=== PATIENT | female | born 1970 | race Caucasian/White ===

== ENCOUNTER 2020-11-06 14:39 | Inpatient (IN) | payer MEDICARE, OTHER ==
[~2020-11-06] VITALS: Ht 152.4 cm; Wt 99.3 kg
[2020-11-06 14:30] VITALS: BP 136/75
--- NOTE | 2020-11-06 15:57 | PDOC1 ---
History and Physical Date of Service: DOS: DATE: 11/06/20 TIME: 15:57 Chief Complaint: Chief Complain: N/V History of Present Illness: HPI: 50 yo F With PMHx of fibromyalgias, seizures, asthma, who went to [place] ED with 5 days of chills, myalgia, dizziness and had worsening symptoms. She also had nausea and vomiting and abdominal pain and some incontinence of stool and urine in the last 3 days. Patient states that she has had 3 episodes of diarrhea today and multiple episodes of nausea vomiting today. She was tested for Covid at [place] and was found to be positive. She did receive 1 dose of Remdesivir and then she was transferred over to [facility] because there is no beds at [place]. There are no alleviating or aggravating factors. She did recently finished antibiotics 2 weeks ago for an ear infection, she did take Augmentin. Denies fevers, chest pain, shortness of breath, bloody stools or hematuria. Patient did not get vaccinated for Covid because her PCP told her that she was having multiple infections and told her to wait until these improved. 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 EYES: No blurred, double or loss of vision. NOSE AND THROAT: No history of nosebleeds, hoarseness or sore throat. HEART: No history of palpitations, chest pain or shortness of breath on exertion. LUNGS: Denies cough, hemoptysis, wheezing or shortness of breath. GASTROINTESTINAL: Denies changes in appetite, nausea, vomiting, diarrhea or constipation. GENITOURINARY: No history of frequency, urgency, hesitancy or nocturia. NEUROLOGIC: Denies history of numbness, tingling, or tremor. PSYCHIATRIC: No history of panic, anxiety or depression. ENDOCRINE: No history of heat or cold intolerance, polyuria or polydipsia. EXTREMITIES: Denies joint pain, pain on walking or stiffness. Physical Exam: Vital Signs: Vital Signs Date Time Temp Pulse Resp B/P (MAP) Pulse Ox O2 Delivery O2 Flow Rate FiO2 11/06/20 14:30 98.7 80 18 136/75 (95) 95 Room Air 98.7 Physcial Exam: General: Well developed, well nourished, no acute distress, well appearing HEENT: Pupils equally round and reactive to light, EOMI, no discharge, normal conjunctiva Neck: Supple, no nuchal rigidity, no JVD, trachea midline, no tenderness Cardiac: RRR, no murmurs, no gallops, no rubs Chest/Lungs: CTAB, no wheeze, no rhonchi, no crackles Abdomen: soft, non-distended, no guarding, no peritoneal signs, non-tender Back: No tenderness Extremities: no edema, pulses intact, non-tender,capillary refill <3 sec bilateral upper and lower extremities, Neuro: Alert and oriented x 4, no focal deficits, normal speech Labs: Labs: Labs reviewed from [place], significant for sodium of 135, creatinine 1.2, calcium 7.9, magnesium 1.8, lactic acid 1.7, troponins less than 0.04 Images: Images Chest x-ray reviewed from [place] results showed diffuse chronic interstitial pulmonary changes. Assessment/Plan Assessment/Plan COVID-19 infection Intractable nausea vomiting diarrhea, possibly related to viral infection Mild hyponatremia History of fibromyalgia History of seizures History of rheumatoid arthritis Admit to medicine for further management Continue IV thiamine and vitamin C IV Solu-Medrol every 8 hours IV Remdesivir if patient requires O2 supplementation beyond their baseline Pending D-dimer labs Continue IV fluids Lovenox for DVT prophylaxis Protonix while on steroids GI prophylaxis Clear liquid diet Full code Discussed with RN and SW Disposition inpatient management as above Surrogate decision maker is the Justifications for Admission Other Justification IRVING CAMACHO MD Nov 06, 2020 15:57
[2020-11-06] MEDS ORDERED: POTASSIUM CHLORIDE 20 MEQ TABLET.ER. PO ONE (16:15)
[2020-11-06] MEDS ORDERED: DOCUSATE SODIUM 100 MG CAPSULE. PO PRN (16:30)
[2020-11-06] MEDS ORDERED: DEXTROSE 50% 25 GM / 50ML DISP.SYRIN. IV PRN (16:30)
[2020-11-06] MEDS ORDERED: PROCHLORPERAZINE 10 MG/2 ML VIAL. IV PRN (16:30)
[2020-11-06] MEDS ORDERED: ONDANSETRON PF 4 MG/2 ML VIAL. IVP PRN (16:30)
[2020-11-06] MEDS ORDERED: MAGNESIUM SULFATE 1GM 100 ML IV ONE (16:30)
[2020-11-06] MEDS ORDERED: SENNOSIDES 8.6 MG TABLET PO PRN (16:30)
[2020-11-06] MEDS ORDERED: ENOXAPARIN 40 MG/0.4 ML SYRINGE. SQ SCH (17:00)
[2020-11-06] MEDS: IV NORMAL SALINE 1000ML BAG 1,000 ML IV SCH (17:01)
[2020-11-06] MEDS: methylPREDNISolone SOD SUCC PF 40 MG/ML VIAL. IV SCH ×2 (17:02→21:12)
[2020-11-06] MEDS: THIAMINE 100 MG TABLET. PO SCH (17:02)
[2020-11-06] MEDS: PANTOPRAZOLE 40 MG TABLET.DR. PO SCH (17:02)
[2020-11-06] MEDS ORDERED: DICY10CA3 PO (18:30)
[2020-11-06] MEDS ORDERED: CYCL10TA2 PO (18:30)
[2020-11-06] MEDS ORDERED: DOXE25CA PO (18:30)
[2020-11-06] MEDS ORDERED: VENTOLIN HFA18 GM INH (18:30)
[2020-11-06] MEDS ORDERED: METO10TA81 PO (18:30)
[2020-11-06] MEDS ORDERED: MAGN400C PO (18:30)
[2020-11-06] MEDS ORDERED: RIZA10TA PO (18:30)
[2020-11-06] MEDS ORDERED: BUDE10.2 IH (18:30)
[2020-11-06] MEDS ORDERED: FOLI0.8C PO (18:30)
[2020-11-06] MEDS ORDERED: METO-239 PO (18:30)
[2020-11-06] MEDS ORDERED: MONT10TA49 PO (18:30)
[2020-11-06] MEDS ORDERED: ALPR0.254 PO (18:30)
[2020-11-06] MEDS ORDERED: POTA20TA4 PO (18:30)
[2020-11-06] MEDS ORDERED: ALBU2.5V8 INH (18:30)
[2020-11-06] MEDS ORDERED: METH2.5T PO (18:30)
[2020-11-06] MEDS ORDERED: CHLO25TA2 PO (18:30)
[2020-11-06] MEDS ORDERED: CITA20TA9 PO (18:30)
[2020-11-06] MEDS ORDERED: PRED5TAB PO (18:30)
[2020-11-06] MEDS ORDERED: AMIT25TA PO (18:30)
[2020-11-06] MEDS ORDERED: ATOR20TA58 PO (18:30)
[2020-11-06 19:00] VITALS: BP 147/86
[2020-11-06] MEDS: IPRATROPIUM/ALBUTEROL 20/100mcg/INH INHALER. INH SCH (20:34)
[2020-11-06] MEDS: ATORVASTATIN CALCIUM 20 MG TABLET PO SCH (21:00)
[2020-11-06] MEDS: CYCLOBENZAPRINE 10 MG TABLET. PO SCH (21:00)
[2020-11-06] MEDS: ASCORBIC ACID 1,000 MG TABLET PO SCH (21:00)
[2020-11-06] MEDS: ACETAMINOPHEN 325 MG TABLET. PO PRN ×2 (21:12→21:32)
[2020-11-06] MEDS: DOXEPIN HCL 25 MG CAPSULE. PO PRN (21:33)
[2020-11-06] MEDS: BENZONATATE 100 MG CAPSULE. PO SCH (21:55)
[2020-11-06] MEDS: ZOLPIDEM 5 MG TABLET. PO PRN (21:56)
[2020-11-06] MEDS: IBUPROFEN 200 MG TABLET. PO PRN (21:56)
[2020-11-06 23:00] VITALS: BP 122/70
[2020-11-07 03:00] VITALS: BP 130/76
[2020-11-07 05:00] LABS: BASO % 0 % (0-3); EOS % 0 % (0-3); HEMATOCRIT 36.8 % (36.0-47.0); HEMOGLOBIN 12.3 g/dL (12.0-15.5); LYMPH # 0.9 x10^3/uL (1.0-4.8); LYMPH % 15 % (24-48); MEAN CORPUSCULAR HEMOGLOBIN 26 pg (25-35); MEAN CORPUSCULAR HGB CONC 33 g/dL (31-37); MEAN CORPUSCULAR VOLUME 78 fL (79-100); MONO # 0.2 x10^3/uL (0.0-1.1); MONO % 3 % (0-9); NEUT # 4.8 x10^3/uL (1.8-7.7); NEUT % 83 % (31-73); PLATELET COUNT 280 x10^3/uL (140-400); RED BLOOD COUNT 4.74 x10^6/uL (3.50-5.40); RED CELL DISTRIBUTION WIDTH 16.3 % (11.5-14.5); WHITE BLOOD COUNT 5.9 x10^3/uL (4.0-11.0)
[2020-11-07 05:20] LABS: CALCIUM 7.9 mg/dL (8.5-10.1); GFR 58.2; MAGNESIUM 2.3 mg/dL (1.8-2.4); POTASSIUM 4.6 mmol/L (3.5-5.1)
[2020-11-07] MEDS: methylPREDNISolone SOD SUCC PF 40 MG/ML VIAL. IV SCH ×3 (06:04→21:51)
[2020-11-07] MEDS: IV NORMAL SALINE 1000ML BAG 1,000 ML IV SCH ×2 (06:04→20:28)
[2020-11-07 07:00] VITALS: BP 123/81
[2020-11-07] MEDS: THIAMINE 100 MG TABLET. PO SCH (09:45)
[2020-11-07] MEDS: ASCORBIC ACID 1,000 MG TABLET PO SCH ×3 (09:45→20:28)
[2020-11-07] MEDS: AMITRIPTYLINE HCL 25 MG TABLET. PO SCH (09:45)
[2020-11-07] MEDS: FOLIC ACID 1 MG TABLET. PO SCH (09:45)
[2020-11-07] MEDS: MAGNESIUM OXIDE 400 MG TABLET PO SCH (09:45)
[2020-11-07] MEDS: CYCLOBENZAPRINE 10 MG TABLET. PO SCH ×3 (09:45→20:28)
[2020-11-07] MEDS: CHLORTHALIDONE 25 MG TABLET. PO SCH (09:45)
[2020-11-07] MEDS: ALBUTEROL SULFATE 8GM INHALER. INH PRN (09:45)
[2020-11-07] MEDS: IPRATROPIUM/ALBUTEROL 20/100mcg/INH INHALER. INH SCH ×4 (09:45→20:27)
[2020-11-07] MEDS: DICYCLOMINE HCL 10 MG CAPSULE PO SCH (09:45)
[2020-11-07] MEDS: BENZONATATE 100 MG CAPSULE. PO SCH ×3 (09:46→20:29)
[2020-11-07] MEDS: METOCLOPRAMIDE 10 MG TABLET. PO SCH ×2 (09:46→16:49)
[2020-11-07] MEDS: CITALOPRAM 20 MG TABLET. PO SCH (09:46)
[2020-11-07] MEDS: PANTOPRAZOLE 40 MG TABLET.DR. PO SCH (09:46)
[2020-11-07] MEDS: METOPROLOL SUCC 24HR ER 50 MG TAB.ER.24H. PO SCH (09:47)
[2020-11-07] MEDS ORDERED: BENZONATATE 100 MG CAPSULE. PO SCH (10:30)
[2020-11-07 11:00] VITALS: BP 123/49
[2020-11-07] MEDS: REMDESIVIR 100mg in NORMAL SALINE 250ML X 4 DAYS IV SCH (11:43)
[2020-11-07] MEDS: guaiFENesin/CODEINE 100mg/10mg 5 ML LIQUID PO PRN (11:43)
[2020-11-07 15:00] VITALS: BP 138/73
[2020-11-07 19:54] VITALS: BP 129/75
[2020-11-07] MEDS: ENOXAPARIN 40 MG/0.4 ML SYRINGE. SQ SCH (20:28)
[2020-11-07] MEDS: ATORVASTATIN CALCIUM 20 MG TABLET PO SCH (20:29)
--- NOTE | 2020-11-07 21:00 | NUR ---
Upon doing 2030 assessment Patient stated she fell. Then stated "I didn't fall I squatted and hit my foot on the trash, grabbing the IV pole and trash can." Patient stated she hurt her foot, but rubbed it with lotion and it doesn't hurt anymore. No injury noted to foot. Patient stated her hips are sore due to doing a football squat when stopping herself from falling. No injury noted to hips. Call to Dr. Reid and informed him of Patent near fall. Dr. Reid stated he would assess her in am with rounds.
[2020-11-07] MEDS: IBUPROFEN 200 MG TABLET. PO PRN (21:51)
[2020-11-07 23:57] VITALS: BP 100/47
[2020-11-08 03:58] VITALS: BP 90/49
[2020-11-08] MEDS: methylPREDNISolone SOD SUCC PF 40 MG/ML VIAL. IV SCH ×3 (06:08→21:01)
[2020-11-08 07:00] VITALS: BP 127/59
[2020-11-08 07:14] LABS: BASO % 0 % (0-3); EOS % 0 % (0-3); HEMOGLOBIN 11.4 g/dL (12.0-15.5); LYMPH % 9 % (24-48); MEAN CORPUSCULAR HEMOGLOBIN 25 pg (25-35); MEAN CORPUSCULAR HGB CONC 33 g/dL (31-37); MEAN CORPUSCULAR VOLUME 77 fL (79-100); MONO # 0.5 x10^3/uL (0.0-1.1); MONO % 5 % (0-9); NEUT # 8.9 x10^3/uL (1.8-7.7); NEUT % 86 % (31-73); PLATELET COUNT 286 x10^3/uL (140-400); RED BLOOD COUNT 4.52 x10^6/uL (3.50-5.40); RED CELL DISTRIBUTION WIDTH 16.8 % (11.5-14.5); WHITE BLOOD COUNT 10.4 x10^3/uL (4.0-11.0)
[2020-11-08 07:25] LABS: CALCIUM 7.5 mg/dL (8.5-10.1); CREATININE 1.1 mg/dL (0.6-1.0); GFR 52.2; MAGNESIUM 2.2 mg/dL (1.8-2.4); POTASSIUM 4.1 mmol/L (3.5-5.1)
[2020-11-08] MEDS: CYCLOBENZAPRINE 10 MG TABLET. PO SCH ×3 (08:29→21:00)
[2020-11-08] MEDS: THIAMINE 100 MG TABLET. PO SCH (08:29)
[2020-11-08] MEDS: DICYCLOMINE HCL 10 MG CAPSULE PO SCH (08:29)
[2020-11-08] MEDS: MAGNESIUM OXIDE 400 MG TABLET PO SCH (08:30)
[2020-11-08] MEDS: AMITRIPTYLINE HCL 25 MG TABLET. PO SCH (08:30)
[2020-11-08] MEDS: PANTOPRAZOLE 40 MG TABLET.DR. PO SCH (08:30)
[2020-11-08] MEDS: CITALOPRAM 20 MG TABLET. PO SCH (08:30)
[2020-11-08] MEDS: CHLORTHALIDONE 25 MG TABLET. PO SCH (08:30)
[2020-11-08] MEDS: FOLIC ACID 1 MG TABLET. PO SCH (08:30)
[2020-11-08] MEDS: BENZONATATE 100 MG CAPSULE. PO SCH ×3 (08:30→21:00)
[2020-11-08] MEDS: IPRATROPIUM/ALBUTEROL 20/100mcg/INH INHALER. INH SCH ×4 (08:31→21:01)
[2020-11-08] MEDS: IV NORMAL SALINE 1000ML BAG 1,000 ML IV SCH ×2 (08:32→21:00)
[2020-11-08] MEDS: ENOXAPARIN 40 MG/0.4 ML SYRINGE. SQ SCH ×2 (08:34→21:00)
[2020-11-08] MEDS: METOPROLOL SUCC 24HR ER 50 MG TAB.ER.24H. PO SCH (08:36)
[2020-11-08] MEDS: METOCLOPRAMIDE 10 MG TABLET. PO SCH ×2 (08:36→16:10)
--- NOTE | 2020-11-08 08:58 | PDOC ---
[employer] PROGRESS NOTE Date of Service DOS: DATE: 11/07/20 TIME: 08:57 Late entry for November 07 Chief Complaint Chief Complaint Shortness of breath History of Present Illness History of Present Illness 50 yo F With PMHx of fibromyalgias, seizures, asthma, who went to [place] ED with 5 days of chills, myalgia, dizziness and had worsening symptoms. She also had nausea and vomiting and abdominal pain and some incontinence of stool and urine in the last 3 days. Patient states that she has had 3 episodes of diarrhea today and multiple episodes of nausea vomiting today. She was tested for Covid at [place] and was found to be positive. She did receive 1 dose of Remdesivir and then she was transferred over to [facility] because there is no beds at [place]. There are no alleviating or aggravating factors. She did recently finished antibiotics 2 weeks ago for an ear infection, she did take Augmentin. Denies fevers, chest pain, shortness of breath, bloody stools or hematuria. Patient did not get vaccinated for Covid because her PCP told her that she was having multiple infections and told her to wait until these improved. 11/07 Patient evaluated at bedside. She was resting in bed on room air with a lot of coughing. She was very pleasant. Understands this will take some time to resolve. Will restart remdesivir today as it was started at the outside hospital. Vitals/I&O Vitals/I&O: Vital Signs Date Time Temp Pulse Resp B/P (MAP) Pulse Ox O2 Delivery O2 Flow Rate FiO2 11/08/20 08:36 77 127/59 11/08/20 07:00 99.1 19 93 Room Air 99.1 I & O 11/07/20 11/07/20 11/08/20 15:00 23:00 07:00 Intake Total 290 ml 100 ml 460 ml Output Total 650 ml Balance 290 ml 100 ml -190 ml Physical Exam General: Alert, Oriented X3, Cooperative Heart: Regular rate, Normal S1, Normal S2 Lungs: Crackles Abdomen: Normal bowel sounds, Soft, No tenderness Extremities: No edema, Normal pulses Labs Labs: Laboratory Tests Test 11/08/20 06:25 White Blood Count 10.4 x10^3/uL (4.0-11.0) Red Blood Count 4.52 x10^6/uL (3.50-5.40) Hemoglobin 11.4 g/dL (12.0-15.5) Hematocrit 35.0 % (36.0-47.0) Mean Corpuscular Volume 77 fL (79-100) Mean Corpuscular Hemoglobin 25 pg (25-35) Mean Corpuscular Hemoglobin Concent 33 g/dL (31-37) Red Cell Distribution Width 16.8 % (11.5-14.5) Platelet Count 286 x10^3/uL (140-400) Neutrophils (%) (Auto) 86 % (31-73) Lymphocytes (%) (Auto) 9 % (24-48) Monocytes (%) (Auto) 5 % (0-9) Eosinophils (%) (Auto) 0 % (0-3) Basophils (%) (Auto) 0 % (0-3) Neutrophils # (Auto) 8.9 x10^3/uL (1.8-7.7) Lymphocytes # (Auto) 1.0 x10^3/uL (1.0-4.8) Monocytes # (Auto) 0.5 x10^3/uL (0.0-1.1) Eosinophils # (Auto) 0.0 x10^3/uL (0.0-0.7) Basophils # (Auto) 0.0 x10^3/uL (0.0-0.2) Sodium Level 137 mmol/L (136-145) Potassium Level 4.1 mmol/L (3.5-5.1) Chloride Level 100 mmol/L (98-107) Carbon Dioxide Level 29 mmol/L (21-32) Anion Gap 8 (6-14) Blood Urea Nitrogen 8 mg/dL (7-20) Creatinine 1.1 mg/dL (0.6-1.0) Estimated GFR (Cockcroft-Gault) 52.2 Glucose Level 214 mg/dL (70-99) Calcium Level 7.5 mg/dL (8.5-10.1) Magnesium Level 2.2 mg/dL (1.8-2.4) Review of Systems Review of Systems: Negative unless noted in HPI Assessment and Plan Assessmemt and Plan COVID-19 infection Intractable nausea vomiting diarrhea, possibly related to viral infection Mild hyponatremia History of fibromyalgia History of seizures History of rheumatoid arthritis Admit to medicine for further management Continue IV thiamine and vitamin C IV Solu-Medrol every 8 hours IV Remdesivir if patient requires O2 supplementation beyond their baseline Pending D-dimer labs Continue IV fluids Lovenox for DVT prophylaxis Protonix while on steroids GI prophylaxis Clear liquid diet Full code Discussed with RN and SW Disposition inpatient management as above Surrogate decision maker is the Comment Review of Relevant I have reviewed the following items shawanda (where applicable) has been applied. Medications: Current Medications Medications (Trade) Dose Ordered Sig/Alex Route PRN Reason Start Time Stop Time Status Last Admin Dose Admin Amitriptyline HCl (Elavil) 25 mg DAILY PO 11/07/20 09:00 11/08/20 08:30 Chlorthalidone (Thalitone) 25 mg DAILY PO 11/07/20 09:00 11/08/20 08:30 Citalopram Hydrobromide (CeleXA) 20 mg DAILY PO 11/07/20 09:00 11/08/20 08:30 Dicyclomine HCl (Bentyl) 10 mg DAILY PO 11/07/20 09:00 11/08/20 08:29 Metoprolol Succinate (Toprol Xl) 50 mg DAILY PO 11/07/20 09:00 11/08/20 08:36 Folic Acid (Folic Acid) 1 mg DAILY PO 11/07/20 09:00 11/08/20 08:30 Magnesium Oxide (Magnesium Oxide) 400 mg DAILY PO 11/07/20 09:00 11/08/20 08:30 Remdesivir 100 mg/ Sodium Chloride 230 ml @ 460 mls/hr Q24H IV 11/07/20 11:30 11/10/20 11:59 11/07/20 11:43 Enoxaparin Sodium (Lovenox 40mg Syringe) 40 mg BID SQ 11/07/20 21:00 11/08/20 08:34 Justifications for Admission Other Justification COVID-19 infection VICTORIA JONES MD Nov 08, 2020 08:58
[2020-11-08 10:48] LABS: % BANDS 7 % (0-9); % LYMPHS 7 % (24-48); % MONOS 5 % (0-10); % SEGS 81 % (35-66); PLT ESTIMATE ADEQUATE (ADEQUATE)
[2020-11-08 11:00] VITALS: BP 109/55
--- NOTE | 2020-11-08 11:55 | PDOC ---
[employer] PROGRESS NOTE Date of Service DOS: DATE: 11/08/20 TIME: 11:54 Chief Complaint Chief Complaint Shortness of breath History of Present Illness History of Present Illness 50 yo F With PMHx of fibromyalgias, seizures, asthma, who went to [place] ED with 5 days of chills, myalgia, dizziness and had worsening symptoms. She also had nausea and vomiting and abdominal pain and some incontinence of stool and urine in the last 3 days. Patient states that she has had 3 episodes of diarrhea today and multiple episodes of nausea vomiting today. She was tested for Covid at [place] and was found to be positive. She did receive 1 dose of Remdesivir and then she was transferred over to [facility] because there is no beds at [place]. There are no alleviating or aggravating factors. She did recently finished antibiotics 2 weeks ago for an ear infection, she did take Augmentin. Denies fevers, chest pain, shortness of breath, bloody stools or hematuria. Patient did not get vaccinated for Covid because her PCP told her that she was having multiple infections and told her to wait until these improved. 11/07 Patient evaluated at bedside. She was resting in bed on room air with a lot of coughing. She was very pleasant. Understands this will take some time to resolve. Will restart remdesivir today as it was started at the outside hospital. 11/08 Patient evaluated at bedside. She was up in chair resting when I evaluated her. She says her cough is still lingering but definitely improved. Continuing ongoing Covid treatment. Patient agreeable to ongoing admission. Plan of care discussed with bedside nurse. Vitals/I&O Vitals/I&O: Vital Signs Date Time Temp Pulse Resp B/P (MAP) Pulse Ox O2 Delivery O2 Flow Rate FiO2 11/08/20 11:00 98.1 76 19 109/55 (73) 92 Nasal Cannula 98.1 I & O 11/07/20 11/07/20 11/08/20 15:00 23:00 07:00 Intake Total 290 ml 100 ml 460 ml Output Total 650 ml Balance 290 ml 100 ml -190 ml Physical Exam General: Alert, Oriented X3, Cooperative Heart: Regular rate, Normal S1, Normal S2 Lungs: Crackles Abdomen: Normal bowel sounds, Soft, No tenderness Extremities: No edema, Normal pulses Skin: No significant lesion Labs Labs: Laboratory Tests Test 11/08/20 06:25 White Blood Count 10.4 x10^3/uL (4.0-11.0) Red Blood Count 4.52 x10^6/uL (3.50-5.40) Hemoglobin 11.4 g/dL (12.0-15.5) Hematocrit 35.0 % (36.0-47.0) Mean Corpuscular Volume 77 fL (79-100) Mean Corpuscular Hemoglobin 25 pg (25-35) Mean Corpuscular Hemoglobin Concent 33 g/dL (31-37) Red Cell Distribution Width 16.8 % (11.5-14.5) Platelet Count 286 x10^3/uL (140-400) Neutrophils (%) (Auto) 86 % (31-73) Lymphocytes (%) (Auto) 9 % (24-48) Monocytes (%) (Auto) 5 % (0-9) Eosinophils (%) (Auto) 0 % (0-3) Basophils (%) (Auto) 0 % (0-3) Neutrophils # (Auto) 8.9 x10^3/uL (1.8-7.7) Lymphocytes # (Auto) 1.0 x10^3/uL (1.0-4.8) Monocytes # (Auto) 0.5 x10^3/uL (0.0-1.1) Eosinophils # (Auto) 0.0 x10^3/uL (0.0-0.7) Basophils # (Auto) 0.0 x10^3/uL (0.0-0.2) Segmented Neutrophils % 81 % (35-66) Band Neutrophils % 7 % (0-9) Lymphocytes % 7 % (24-48) Monocytes % 5 % (0-10) Platelet Estimate Adequate (ADEQUATE) Sodium Level 137 mmol/L (136-145) Potassium Level 4.1 mmol/L (3.5-5.1) Chloride Level 100 mmol/L (98-107) Carbon Dioxide Level 29 mmol/L (21-32) Anion Gap 8 (6-14) Blood Urea Nitrogen 8 mg/dL (7-20) Creatinine 1.1 mg/dL (0.6-1.0) Estimated GFR (Cockcroft-Gault) 52.2 Glucose Level 214 mg/dL (70-99) Calcium Level 7.5 mg/dL (8.5-10.1) Magnesium Level 2.2 mg/dL (1.8-2.4) Assessment and Plan Assessmemt and Plan Assessmemt and Plan COVID-19 infection Intractable nausea vomiting diarrhea, possibly related to viral infection Mild hyponatremia History of fibromyalgia History of seizures History of rheumatoid arthritis Admit to medicine for further management Continue IV thiamine and vitamin C IV Solu-Medrol every 8 hours IV Remdesivir if patient requires O2 supplementation beyond their baseline As needed Robitussin with codeine and Tessalon Perles Continue IV fluids Lovenox for DVT prophylaxis Protonix while on steroids GI prophylaxis Clear liquid diet Full code Discussed with RN and SW Disposition inpatient management as above Surrogate decision maker is the Comment Review of Relevant I have reviewed the following items shawanda (where applicable) has been applied. Medications: Current Medications Medications (Trade) Dose Ordered Sig/Alex Route PRN Reason Start Time Stop Time Status Last Admin Dose Admin Enoxaparin Sodium (Lovenox 40mg Syringe) 40 mg BID SQ 11/07/20 21:00 11/08/20 08:34 Justifications for Admission Other Justification COVID-19 infection VICTORIA JONES MD Nov 08, 2020 11:55
[2020-11-08] MEDS: ASCORBIC ACID 1,000 MG TABLET PO SCH ×3 (12:16→21:00)
[2020-11-08] MEDS: REMDESIVIR 100mg in NORMAL SALINE 250ML X 4 DAYS IV SCH (12:20)
[2020-11-08] MEDS: guaiFENesin/CODEINE 100mg/10mg 5 ML LIQUID PO PRN (13:09)
[2020-11-08] MEDS: IBUPROFEN 200 MG TABLET. PO PRN (13:14)
[2020-11-08 15:00] VITALS: BP 119/54
--- NOTE | 2020-11-08 15:00 | NUR ---
Nurse's note: Non administered 1400 dose of ascorbic acid, same med given 2 hours ago.
[2020-11-08] MEDS: MORPHINE SULFATE 2 MG/ML INJ. IVP PRN ×2 (16:09→23:11)
[2020-11-08 19:51] VITALS: BP 107/55
[2020-11-08] MEDS: ATORVASTATIN CALCIUM 20 MG TABLET PO SCH (21:07)
[2020-11-08 23:59] VITALS: BP 135/73
[2020-11-09 03:50] VITALS: BP 128/81
[2020-11-09] MEDS: methylPREDNISolone SOD SUCC PF 40 MG/ML VIAL. IV SCH ×3 (05:43→20:58)
[2020-11-09] MEDS: MORPHINE SULFATE 2 MG/ML INJ. IVP PRN (05:44)
[2020-11-09 06:51] LABS: CALCIUM 7.7 mg/dL (8.5-10.1); CREATININE 1.1 mg/dL (0.6-1.0); GFR 52.2; MAGNESIUM 2.2 mg/dL (1.8-2.4); POTASSIUM 3.4 mmol/L (3.5-5.1)
[2020-11-09 07:00] VITALS: BP 136/76
[2020-11-09 07:11] LABS: BASO % 0 % (0-3); EOS % 0 % (0-3); HEMATOCRIT 36.1 % (36.0-47.0); HEMOGLOBIN 11.9 g/dL (12.0-15.5); LYMPH # 0.8 x10^3/uL (1.0-4.8); LYMPH % 9 % (24-48); MEAN CORPUSCULAR HEMOGLOBIN 25 pg (25-35); MEAN CORPUSCULAR HGB CONC 33 g/dL (31-37); MEAN CORPUSCULAR VOLUME 77 fL (79-100); MONO # 0.5 x10^3/uL (0.0-1.1); MONO % 5 % (0-9); NEUT # 8.1 x10^3/uL (1.8-7.7); NEUT % 86 % (31-73); PLATELET COUNT 293 x10^3/uL (140-400); RED BLOOD COUNT 4.69 x10^6/uL (3.50-5.40); RED CELL DISTRIBUTION WIDTH 16.2 % (11.5-14.5); WHITE BLOOD COUNT 9.4 x10^3/uL (4.0-11.0)
--- NOTE | 2020-11-09 07:50 | PDOC ---
[employer] PROGRESS NOTE Date of Service DOS: DATE: 11/09/20 TIME: 07:49 Chief Complaint Chief Complaint A/P: Shortness of breath COVID-19 infection Acute hypoxic respiratory failure - due to covid 19 Intractable nausea vomiting diarrhea, possibly related to viral infection Mild hyponatremia Fibromyalgia History of seizures Rheumatoid arthritis Hypokalemia Hyperglcyemia - check a1C FEN - clear liquid diet PPX - lovenox FULL CODE Dispo - inpatient for covid 19 History of Present Illness History of Present Illness Ms Jara is a 50 yo F With PMHx of fibromyalgias, seizures, asthma, who went to [place] ED with 5 days of chills, myalgia, dizziness and had worsening symptoms. She also had nausea and vomiting and abdominal pain and some incontinence of stool and urine in the last 3 days. Patient states that she has had 3 episodes of diarrhea today and multiple episodes of nausea vomiting today. She was tested for Covid at [place] and was found to be positive. She did receive 1 dose of Remdesivir and then she was transferred over to [facility] because there is no beds at [place]. There are no alleviating or aggravating factors. She did recently finished antibiotics 2 weeks ago for an ear infection, she did take Augmentin. Denies fevers, chest pain, shortness of breath, bloody stools or hematuria. Patient did not get vaccinated for Covid because her PCP told her that she was having multiple infections and told her to wait until these improved. 11/07: Patient evaluated at bedside. She was resting in bed on room air with a l ot of coughing. She was very pleasant. Restart remdesivir today 11/08: Patient evaluated at bedside. She was up in chair resting when I evaluated her. She says her cough is still lingering but definitely improved. Continuing ongoing Covid treatment. NA 135, K3.4, CR 1.1, glucose 191. Clinical episode of vomiting yesterday. Not eating much. Still significant cough with some right-sided rib pain and bilateral groin pain after lifting herself up. Vitals/I&O Vitals/I&O: Vital Signs Date Time Temp Pulse Resp B/P (MAP) Pulse Ox O2 Delivery O2 Flow Rate FiO2 11/09/20 06:14 20 Nasal Cannula 2.0 11/09/20 03:50 98.9 89 128/81 (97) 94 98.9 I & O 11/08/20 11/08/20 11/09/20 15:00 23:00 07:00 Intake Total 800 ml 1300 ml 350 ml Output Total 500 ml Balance 800 ml 1300 ml -150 ml Physical Exam General: Alert, Oriented X3, Cooperative Heart: Regular rate, Normal S1, Normal S2 Lungs: Crackles Abdomen: Normal bowel sounds, Soft, No tenderness Extremities: No edema, Normal pulses Skin: No significant lesion Labs Labs: Laboratory Tests Test 11/09/20 06:05 White Blood Count 9.4 x10^3/uL (4.0-11.0) Red Blood Count 4.69 x10^6/uL (3.50-5.40) Hemoglobin 11.9 g/dL (12.0-15.5) Hematocrit 36.1 % (36.0-47.0) Mean Corpuscular Volume 77 fL (79-100) Mean Corpuscular Hemoglobin 25 pg (25-35) Mean Corpuscular Hemoglobin Concent 33 g/dL (31-37) Red Cell Distribution Width 16.2 % (11.5-14.5) Platelet Count 293 x10^3/uL (140-400) Neutrophils (%) (Auto) 86 % (31-73) Lymphocytes (%) (Auto) 9 % (24-48) Monocytes (%) (Auto) 5 % (0-9) Eosinophils (%) (Auto) 0 % (0-3) Basophils (%) (Auto) 0 % (0-3) Neutrophils # (Auto) 8.1 x10^3/uL (1.8-7.7) Lymphocytes # (Auto) 0.8 x10^3/uL (1.0-4.8) Monocytes # (Auto) 0.5 x10^3/uL (0.0-1.1) Eosinophils # (Auto) 0.0 x10^3/uL (0.0-0.7) Basophils # (Auto) 0.0 x10^3/uL (0.0-0.2) Sodium Level 135 mmol/L (136-145) Potassium Level 3.4 mmol/L (3.5-5.1) Chloride Level 96 mmol/L (98-107) Carbon Dioxide Level 31 mmol/L (21-32) Anion Gap 8 (6-14) Blood Urea Nitrogen 9 mg/dL (7-20) Creatinine 1.1 mg/dL (0.6-1.0) Estimated GFR (Cockcroft-Gault) 52.2 Glucose Level 191 mg/dL (70-99) Calcium Level 7.7 mg/dL (8.5-10.1) Magnesium Level 2.2 mg/dL (1.8-2.4) Comment Review of Relevant I have reviewed the following items shawanda (where applicable) has been applied. Medications: Current Medications Medications (Trade) Dose Ordered Sig/Alex Route PRN Reason Start Time Stop Time Status Last Admin Dose Admin Morphine Sulfate (Morphine Sulfate) 2 mg PRN Q2HR PRN IVP PAIN 11/08/20 15:30 11/09/20 05:44 Justifications for Admission Other Justification COVID-19 infection VICTORIA HERNANDEZ MD Nov 09, 2020 07:50
[2020-11-09] MEDS ORDERED: DEXTROSE 50% 25 GM / 50ML DISP.SYRIN. IV PRN (08:00)
[2020-11-09] MEDS: IPRATROPIUM/ALBUTEROL 20/100mcg/INH INHALER. INH SCH ×4 (09:08→20:00)
[2020-11-09] MEDS: PANTOPRAZOLE 40 MG TABLET.DR. PO SCH (09:09)
[2020-11-09] MEDS: BENZONATATE 100 MG CAPSULE. PO SCH ×2 (09:09→20:57)
[2020-11-09] MEDS: DICYCLOMINE HCL 10 MG CAPSULE PO SCH (09:09)
[2020-11-09] MEDS: METOCLOPRAMIDE 10 MG TABLET. PO SCH ×2 (09:09→16:51)
[2020-11-09] MEDS: THIAMINE 100 MG TABLET. PO SCH (09:09)
[2020-11-09] MEDS: ASCORBIC ACID 1,000 MG TABLET PO SCH ×3 (09:09→20:57)
[2020-11-09] MEDS: MAGNESIUM OXIDE 400 MG TABLET PO SCH (09:10)
[2020-11-09] MEDS: FOLIC ACID 1 MG TABLET. PO SCH (09:10)
[2020-11-09] MEDS: AMITRIPTYLINE HCL 25 MG TABLET. PO SCH (09:10)
[2020-11-09] MEDS: CITALOPRAM 20 MG TABLET. PO SCH (09:10)
[2020-11-09] MEDS: ENOXAPARIN 40 MG/0.4 ML SYRINGE. SQ SCH ×2 (09:11→20:58)
[2020-11-09] MEDS: METOPROLOL SUCC 24HR ER 50 MG TAB.ER.24H. PO SCH (09:14)
[2020-11-09] MEDS: POTASSIUM CHLORIDE 20 MEQ TABLET.ER. PO SCH (09:16)
[2020-11-09] MEDS: INSULIN LISPRO 300 UNITS/3 ML VIAL. SQ SCH ×3 (09:22→17:37)
[2020-11-09] MEDS ORDERED: BENZONATATE 100 MG CAPSULE. PO SCH (10:30)
[2020-11-09 11:00] VITALS: BP 117/78
[2020-11-09] MEDS: REMDESIVIR 100mg in NORMAL SALINE 250ML X 4 DAYS IV SCH (11:29)
[2020-11-09] MEDS: ZINC SULFATE 220 MG CAPSULE. PO SCH (11:29)
[2020-11-09] MEDS: LIDOCAINE (700MG/PATCH) PATCH. TD SCH (11:31)
--- NOTE | 2020-11-09 11:31 | NUR ---
SW following. Discussed with RN, pt from home, 3L (does not use oxygen at home, clear liquid diet. COVID-19 positive. RN advised no SW needs at this time. SW will continue to follow.
[2020-11-09] MEDS: AA 4.25 %/CALCIUM/LYTES/D5W 1,000 ML IV SCH ×2 (13:04→22:44)
[2020-11-09 15:00] VITALS: BP 127/81
[2020-11-09] MEDS: traMADol 50 MG TABLET PO PRN (17:34)
[2020-11-09 19:00] VITALS: BP 138/90
[2020-11-09] MEDS: MONTELUKAST SODIUM 10 MG TABLET. PO SCH (20:57)
[2020-11-09] MEDS: ATORVASTATIN CALCIUM 20 MG TABLET PO SCH (20:57)
[2020-11-09] MEDS: ZOLPIDEM 5 MG TABLET. PO PRN (20:57)
[2020-11-09] MEDS: CYCLOBENZAPRINE 10 MG TABLET. PO PRN (20:57)
[2020-11-09] MEDS: PATCH REMOVAL. MC SCH (20:58)
[2020-11-09 23:00] VITALS: BP 156/93
[2020-11-10 01:11] LABS: HEMOGLOBIN A1C 6.7 % (4.8-5.6)
[2020-11-10 03:00] VITALS: BP 131/78
[2020-11-10] MEDS: methylPREDNISolone SOD SUCC PF 40 MG/ML VIAL. IV SCH ×3 (05:44→20:35)
[2020-11-10 07:00] VITALS: BP 133/81
[2020-11-10 07:51] LABS: ALBUMIN 2.7 g/dL (3.4-5.0); ALBUMIN/GLOBULIN RATIO 0.6 (1.0-1.7); CALCIUM 8.1 mg/dL (8.5-10.1); GFR 58.2; POTASSIUM 3.6 mmol/L (3.5-5.1); TOTAL BILIRUBIN 0.3 mg/dL (0.2-1.0)
[2020-11-10] MEDS: IPRATROPIUM/ALBUTEROL 20/100mcg/INH INHALER. INH SCH ×4 (08:00→20:16)
--- NOTE | 2020-11-10 08:30 | PDOC ---
[employer] PROGRESS NOTE Date of Service DOS: DATE: 11/10/20 TIME: 08:29 Chief Complaint Chief Complaint A/P: Shortness of breath COVID-19 infection Acute hypoxic respiratory failure - due to covid 19 Intractable nausea vomiting diarrhea, possibly related to viral infection Mild hyponatremia Fibromyalgia History of seizures Rheumatoid arthritis Hypokalemia Hyperglcyemia - check a1C FEN - clear liquid diet PPX - lovenox FULL CODE Dispo - inpatient for covid 19 History of Present Illness History of Present Illness Ms Jara is a 50 yo F With PMHx of fibromyalgia, seizures, asthma, who went to [place] ED with 5 days of chills, myalgia, dizziness and had worsening symptoms. She also had nausea and vomiting and abdominal pain and some incontinence of stool and urine in the last 3 days. Patient states that she has had 3 episodes of diarrhea today and multiple episodes of nausea vomiting today. She was tested for Covid at [place] and was found to be positive. She did receive 1 dose of Remdesivir and then she was transferred over to [facility] because there is no beds at [place]. There are no alleviating or aggravating factors. She did recently finished antibiotics 2 weeks ago for an ear infection, she did take Augmentin. Denies fevers, chest pain, shortness of breath, bloody stools or hematuria. Patient did not get vaccinated for Covid because her PCP told her that she was having multiple infections and told her to wait until these improved. 11/07: Patient evaluated at bedside. She was resting in bed on room air with a lot of coughing. She was very pleasant. Restart remdesivir today 11/08: Patient evaluated at bedside. She was up in chair resting when I evaluated her. She says her cough is still lingering but definitely improved. Continuing ongoing Covid treatment. 11/09: NA 135, K3.4, CR 1.1, glucose 191. Episode of vomiting yesterday. Not eating much. Still significant cough with some right-sided rib pain and bilateral groin pain after lifting. Afebrile overnight. NA 132. She was feeling better this morning but then sat up and has more right sided rib pain. Able to eat without vomiting today. On 3 L O2 saturations 91% Vitals/I&O Vitals/I&O: Vital Signs Date Time Temp Pulse Resp B/P (MAP) Pulse Ox O2 Delivery O2 Flow Rate FiO2 11/10/20 07:00 97.0 89 18 133/81 (98) 91 Nasal Cannula 3.0 97.0 I & O 11/09/20 11/09/20 11/10/20 15:00 23:00 07:00 Intake Total 1650 ml 370 ml Balance 1650 ml 370 ml Physical Exam General: Alert, Oriented X3, Cooperative Heart: Regular rate, Normal S1, Normal S2 Lungs: Crackles Abdomen: Normal bowel sounds, Soft, No tenderness Extremities: No edema, Normal pulses Skin: No significant lesion Labs Labs: Laboratory Tests Test 11/09/20 09:17 11/09/20 11:36 11/09/20 17:03 11/09/20 20:21 Glucose (Fingerstick) 230 mg/dL (70-99) 154 mg/dL (70-99) 199 mg/dL (70-99) 246 mg/dL (70-99) Test 11/10/20 06:50 11/10/20 07:36 Sodium Level 132 mmol/L (136-145) Potassium Level 3.6 mmol/L (3.5-5.1) Chloride Level 94 mmol/L (98-107) Carbon Dioxide Level 34 mmol/L (21-32) Anion Gap 4 (6-14) Blood Urea Nitrogen 14 mg/dL (7-20) Creatinine 1.0 mg/dL (0.6-1.0) Estimated GFR (Cockcroft-Gault) 58.2 BUN/Creatinine Ratio 14 (6-20) Glucose Level 272 mg/dL (70-99) Calcium Level 8.1 mg/dL (8.5-10.1) Total Bilirubin 0.3 mg/dL (0.2-1.0) Aspartate Amino Transf (AST/SGOT) 27 U/L (15-37) Alanine Aminotransferase (ALT/SGPT) 72 U/L (14-59) Alkaline Phosphatase 186 U/L (46-116) Total Protein 7.0 g/dL (6.4-8.2) Albumin 2.7 g/dL (3.4-5.0) Albumin/Globulin Ratio 0.6 (1.0-1.7) Glucose (Fingerstick) 276 mg/dL (70-99) Comment Review of Relevant I have reviewed the following items shawanda (where applicable) has been applied. Medications: Current Medications Medications (Trade) Dose Ordered Sig/Alex Route PRN Reason Start Time Stop Time Status Last Admin Dose Admin Montelukast Sodium (Singulair) 10 mg HS PO 11/09/20 21:00 11/09/20 20:57 Potassium Chloride (Klor-Con) 20 meq DAILY PO 11/09/20 09:00 11/09/20 09:16 Benzonatate (Tessalon Perle) 100 mg [id number] PO 11/09/20 10:30 11/09/20 13:37 DC 11/09/20 11:29 Zinc Sulfate (Orazinc) 220 mg DAILY PO 11/09/20 10:30 11/09/20 11:29 Amino Acids/ Electrolytes/ Dextrose 1,000 ml @ 80 mls/hr [id number] IV 11/09/20 10:30 11/09/20 22:44 Tramadol HCl (Ultram) 50 mg PRN Q6HRS PRN PO PAIN 11/09/20 10:30 11/09/20 17:34 Lidocaine (Lidoderm) 1 patch DAILY TD 11/09/20 10:30 11/09/20 11:31 Miscellaneous (Lidoderm Patch Removal) 1 ea QHS MC 11/09/20 21:00 11/09/20 20:58 Benzonatate (Tessalon Perle) 100 mg [id number] PO 11/09/20 21:00 11/09/20 20:57 Justifications for Admission Other Justification COVID-19 infection VICTORIA HERNANDEZ MD Nov 10, 2020 08:29
[2020-11-10] MEDS: LIDOCAINE (700MG/PATCH) PATCH. TD SCH (08:48)
[2020-11-10] MEDS: FOLIC ACID 1 MG TABLET. PO SCH (08:48)
[2020-11-10] MEDS: METOPROLOL SUCC 24HR ER 50 MG TAB.ER.24H. PO SCH (08:49)
[2020-11-10] MEDS: PANTOPRAZOLE 40 MG TABLET.DR. PO SCH (08:50)
[2020-11-10] MEDS: ZINC SULFATE 220 MG CAPSULE. PO SCH (08:50)
[2020-11-10] MEDS: POTASSIUM CHLORIDE 20 MEQ TABLET.ER. PO SCH (08:50)
[2020-11-10] MEDS: THIAMINE 100 MG TABLET. PO SCH (08:50)
[2020-11-10] MEDS: INSULIN LISPRO 300 UNITS/3 ML VIAL. SQ SCH ×3 (08:50→16:52)
[2020-11-10] MEDS: MAGNESIUM OXIDE 400 MG TABLET PO SCH (08:50)
[2020-11-10] MEDS: ENOXAPARIN 40 MG/0.4 ML SYRINGE. SQ SCH ×2 (08:51→20:35)
[2020-11-10] MEDS: DICYCLOMINE HCL 10 MG CAPSULE PO SCH (08:51)
[2020-11-10] MEDS: ASCORBIC ACID 1,000 MG TABLET PO SCH ×3 (08:51→20:35)
[2020-11-10] MEDS: CITALOPRAM 20 MG TABLET. PO SCH (08:51)
[2020-11-10] MEDS: METOCLOPRAMIDE 10 MG TABLET. PO SCH ×2 (08:51→16:34)
[2020-11-10] MEDS: AMITRIPTYLINE HCL 25 MG TABLET. PO SCH (08:51)
[2020-11-10] MEDS: BENZONATATE 100 MG CAPSULE. PO SCH ×3 (08:52→20:35)
[2020-11-10] MEDS: MORPHINE SULFATE 2 MG/ML INJ. IVP PRN (10:42)
[2020-11-10] MEDS: AA 4.25 %/CALCIUM/LYTES/D5W 1,000 ML IV SCH ×2 (10:42→23:17)
[2020-11-10 11:00] VITALS: BP 119/77
--- NOTE | 2020-11-10 11:11 | RAD ---
EXAM: Chest, single view. HISTORY: Shortness of breath. COMPARISON: None. FINDINGS: A frontal view of the chest is obtained. There is diffuse interstitial infiltrate. No pleur al effusion or pneumothorax is seen. There is mild cardiomegaly. IMPRESSION: Diffuse interstitial infiltrate and mild cardiomegaly. Electronically signed by: Barbie Goel MD (11/10/2020 11:09 AM) [id number]
[2020-11-10] MEDS: REMDESIVIR 100mg in NORMAL SALINE 250ML X 4 DAYS IV SCH (12:34)
[2020-11-10 15:00] VITALS: BP 127/76
[2020-11-10] MEDS: traMADol 50 MG TABLET PO PRN (17:42)
[2020-11-10 19:00] VITALS: BP 139/72
[2020-11-10] MEDS: PATCH REMOVAL. MC SCH (20:34)
[2020-11-10] MEDS: ATORVASTATIN CALCIUM 20 MG TABLET PO SCH (20:35)
[2020-11-10] MEDS: CYCLOBENZAPRINE 10 MG TABLET. PO PRN (20:36)
[2020-11-10] MEDS: ZOLPIDEM 5 MG TABLET. PO PRN (20:38)
[2020-11-10] MEDS: MONTELUKAST SODIUM 10 MG TABLET. PO SCH (20:51)
[2020-11-10] MEDS ORDERED: INSULIN GLARGINE SYRINGE. SQ SCH (21:00)
[2020-11-10 23:00] VITALS: BP 133/84
[2020-11-11 02:42] VITALS: BP 128/74
[2020-11-11] MEDS: methylPREDNISolone SOD SUCC PF 40 MG/ML VIAL. IV SCH ×3 (05:48→20:48)
[2020-11-11] MEDS: PANTOPRAZOLE 40 MG TABLET.DR. PO SCH (05:56)
[2020-11-11] MEDS: METOCLOPRAMIDE 10 MG TABLET. PO SCH ×2 (05:56→16:26)
[2020-11-11] MEDS: traMADol 50 MG TABLET PO PRN ×2 (05:57→15:24)
[2020-11-11 07:00] VITALS: BP 126/72
[2020-11-11] MEDS: IPRATROPIUM/ALBUTEROL 20/100mcg/INH INHALER. INH SCH ×4 (08:00→20:47)
[2020-11-11] MEDS: FOLIC ACID 1 MG TABLET. PO SCH (08:37)
[2020-11-11] MEDS: BENZONATATE 100 MG CAPSULE. PO SCH ×3 (08:37→20:48)
[2020-11-11] MEDS: DICYCLOMINE HCL 10 MG CAPSULE PO SCH (08:37)
[2020-11-11] MEDS: ZINC SULFATE 220 MG CAPSULE. PO SCH (08:37)
[2020-11-11] MEDS: MAGNESIUM OXIDE 400 MG TABLET PO SCH (08:37)
[2020-11-11] MEDS: LIDOCAINE (700MG/PATCH) PATCH. TD SCH (08:37)
[2020-11-11] MEDS: ASCORBIC ACID 1,000 MG TABLET PO SCH ×3 (08:37→20:49)
[2020-11-11] MEDS: THIAMINE 100 MG TABLET. PO SCH (08:38)
[2020-11-11] MEDS: CITALOPRAM 20 MG TABLET. PO SCH (08:38)
[2020-11-11] MEDS: AMITRIPTYLINE HCL 25 MG TABLET. PO SCH (08:38)
[2020-11-11] MEDS: POTASSIUM CHLORIDE 20 MEQ TABLET.ER. PO SCH (08:38)
[2020-11-11] MEDS: METOPROLOL SUCC 24HR ER 50 MG TAB.ER.24H. PO SCH (08:38)
[2020-11-11] MEDS: ENOXAPARIN 40 MG/0.4 ML SYRINGE. SQ SCH ×2 (08:39→20:48)
[2020-11-11] MEDS: INSULIN LISPRO 300 UNITS/3 ML VIAL. SQ SCH ×5 (08:41→16:38)
--- NOTE | 2020-11-11 10:11 | PDOC ---
[employer] PROGRESS NOTE Date of Service DOS: DATE: 11/11/20 TIME: 10:11 Chief Complaint Chief Complaint A/P: Shortness of breath COVID-19 infection Acute hypoxic respiratory failure - due to covid 19 Intractable nausea vomiting diarrhea, possibly related to viral infection Mild hyponatremia Fibromyalgia History of seizures Rheumatoid arthritis Hypokalemia Type II diabetes mellitus - a1C 6.7, newly diagnosed Hyponatremia - nutritional FEN - clear liquid diet PPX - lovenox FULL CODE Dispo - inpatient for covid 19 History of Present Illness History of Present Illness Ms Jara is a 50 yo F With PMHx of fibromyalgia, seizures, asthma, who went to [place] [facility] with 5 days of chills, myalgia, dizziness and had worsening symptoms. She also had nausea and vomiting and abdominal pain and some incontinence of stool and urine in the last 3 days. Patient states that she has had 3 episodes of diarrhea today and multiple episodes of nausea vomiting today. She was tested for Covid at [facility] and was found to be positive. She did receive 1 dose of Remdesivir and then she was transferred over to [facility] because there is no beds at [facility]. There are no alleviating or aggravating factors. She did recently finished antibiotics 2 weeks ago for an ear infection, she did take Augmentin. Denies fevers, chest pain, shortness of breath, bloody stools or hematuria. Patient did not get vaccinated for Covid because her PCP told her that she was having multiple infections and told her to wait until these improved. 11/07: Patient evaluated at bedside. She was resting in bed on room air with a lot of coughing. She was very pleasant. Restart remdesivir today 11/08: Patient evaluated at bedside. She was up in chair resting when I evaluated her. She says her cough is still lingering but definitely improved. Continuing ongoing Covid treatment. 11/09: NA 135, K3.4, CR 1.1, glucose 191. Episode of vomiting yesterday. Not eating much. Still significant cough with some right-sided rib pain and bilateral groin pain after lifting. 11/10: Afebrile overnight. NA 132. She was feeling better this morning but then sat up and has more right sided rib pain. Able to eat without vomiting today. On 3 L O2 saturation 91% Afebrile overnight. NA 131. Still not eating much at all. Chest radiograph with diffuse interstitial infiltrates and cardiomegaly. No further vomiting. Still requiring 3 L nasal cannula oxygen with O2 saturations 91 to 92%. She thinks she might be feeling better overall. Pain is better controlled. Vitals/I&O Vitals/I&O: Vital Signs Date Time Temp Pulse Resp B/P (MAP) Pulse Ox O2 Delivery O2 Flow Rate FiO2 11/11/20 08:38 77 128/74 11/11/20 07:00 97.9 16 91 Nasal Cannula 4.0 97.9 I & O 11/10/20 11/10/20 11/11/20 15:00 23:00 07:00 Intake Total 480 ml 240 ml 1480 ml Output Total 500 ml 1600 ml Balance 480 ml -260 ml -120 ml Physical Exam General: Alert, Oriented X3, Cooperative Heart: Regular rate, Normal S1, Normal S2 Lungs: Crackles Abdomen: Normal bowel sounds, Soft, No tenderness Extremities: No edema, Normal pulses Skin: No significant lesion Labs Labs: Laboratory Tests Test 11/10/20 11:24 11/10/20 16:38 11/10/20 19:20 11/11/20 07:48 Glucose (Fingerstick) 307 mg/dL (70-99) 277 mg/dL (70-99) 177 mg/dL (70-99) 349 mg/dL (70-99) Comment Review of Relevant I have reviewed the following items shawanda (where applicable) has been applied. Medications: Current Medications Medications (Trade) Dose Ordered Sig/Alex Route PRN Reason Start Time Stop Time Status Last Admin Dose Admin Insulin Glargine (Lantus Syringe) 10 unit QHS SQ 11/10/20 21:00 11/10/20 20:36 Justifications for Admission Other Justification COVID-19 infection VICTORIA HERNANDEZ MD Nov 11, 2020 10:11
[2020-11-11] MEDS ORDERED: FUROSEMIDE 20 MG/2 ML VIAL. IVP ONE (10:15)
--- NOTE | 2020-11-11 10:27 | NUR ---
SW following. Discussed with RN, pt from home with family, 4L (does not use oxygen at home). PT/OT ordered. COVID-19 positive. SW will continue to follow.
[2020-11-11 11:00] VITALS: BP 123/75
[2020-11-11 11:46] LABS: BASO % 0 % (0-3); EOS % 0 % (0-3); HEMATOCRIT 37.5 % (36.0-47.0); HEMOGLOBIN 12.3 g/dL (12.0-15.5); LYMPH # 0.7 x10^3/uL (1.0-4.8); LYMPH % 7 % (24-48); MEAN CORPUSCULAR HEMOGLOBIN 25 pg (25-35); MEAN CORPUSCULAR HGB CONC 33 g/dL (31-37); MEAN CORPUSCULAR VOLUME 77 fL (79-100); MONO # 0.7 x10^3/uL (0.0-1.1); MONO % 8 % (0-9); NEUT % 85 % (31-73); PLATELET COUNT 435 x10^3/uL (140-400); RED BLOOD COUNT 4.85 x10^6/uL (3.50-5.40); RED CELL DISTRIBUTION WIDTH 15.8 % (11.5-14.5); WHITE BLOOD COUNT 9.4 x10^3/uL (4.0-11.0)
[2020-11-11 12:00] LABS: ALBUMIN 2.5 g/dL (3.4-5.0); ALBUMIN/GLOBULIN RATIO 0.6 (1.0-1.7); CALCIUM 8.1 mg/dL (8.5-10.1); CREATININE 0.9 mg/dL (0.6-1.0); GFR 65.8; POTASSIUM 3.6 mmol/L (3.5-5.1); TOTAL BILIRUBIN 0.3 mg/dL (0.2-1.0); TOTAL PROTEIN 6.7 g/dL (6.4-8.2)
[2020-11-11] MEDS: AA 4.25 %/CALCIUM/LYTES/D5W 1,000 ML IV SCH ×2 (12:31→23:54)
[2020-11-11 15:00] VITALS: BP 114/57
[2020-11-11] MEDS: CYCLOBENZAPRINE 10 MG TABLET. PO PRN ×2 (15:24→20:48)
[2020-11-11 19:00] VITALS: BP 114/66
[2020-11-11] MEDS: PATCH REMOVAL. MC SCH (20:47)
[2020-11-11] MEDS: ZOLPIDEM 5 MG TABLET. PO PRN (20:48)
[2020-11-11] MEDS: MONTELUKAST SODIUM 10 MG TABLET. PO SCH (20:49)
[2020-11-11] MEDS: ATORVASTATIN CALCIUM 20 MG TABLET PO SCH (20:49)
[2020-11-11] MEDS: INSULIN GLARGINE SYRINGE. SQ SCH (20:51)
[2020-11-11 23:00] VITALS: BP 118/67
[2020-11-12 03:00] VITALS: BP 121/74
[2020-11-12] MEDS: methylPREDNISolone SOD SUCC PF 40 MG/ML VIAL. IV SCH ×3 (06:14→21:23)
[2020-11-12 07:00] VITALS: BP 130/82
[2020-11-12 07:51] LABS: ALBUMIN 2.3 g/dL (3.4-5.0); ALBUMIN/GLOBULIN RATIO 0.6 (1.0-1.7); CALCIUM 7.9 mg/dL (8.5-10.1); CREATININE 0.9 mg/dL (0.6-1.0); GFR 65.8; TOTAL BILIRUBIN 0.2 mg/dL (0.2-1.0); TOTAL PROTEIN 6.4 g/dL (6.4-8.2)
[2020-11-12] MEDS: IPRATROPIUM/ALBUTEROL 20/100mcg/INH INHALER. INH SCH ×4 (08:59→21:22)
[2020-11-12] MEDS: ALBUTEROL SULFATE 8GM INHALER. INH PRN ×2 (08:59→21:22)
[2020-11-12] MEDS: ZINC SULFATE 220 MG CAPSULE. PO SCH (09:00)
[2020-11-12] MEDS: METOPROLOL SUCC 24HR ER 50 MG TAB.ER.24H. PO SCH (09:00)
[2020-11-12] MEDS: PANTOPRAZOLE 40 MG TABLET.DR. PO SCH (09:00)
[2020-11-12] MEDS: MAGNESIUM OXIDE 400 MG TABLET PO SCH (09:00)
[2020-11-12] MEDS: CITALOPRAM 20 MG TABLET. PO SCH (09:00)
[2020-11-12] MEDS: THIAMINE 100 MG TABLET. PO SCH (09:00)
[2020-11-12] MEDS: BENZONATATE 100 MG CAPSULE. PO SCH ×3 (09:00→21:24)
[2020-11-12] MEDS: ASCORBIC ACID 1,000 MG TABLET PO SCH ×3 (09:00→21:29)
[2020-11-12] MEDS: ENOXAPARIN 40 MG/0.4 ML SYRINGE. SQ SCH ×2 (09:01→21:23)
[2020-11-12] MEDS: INSULIN LISPRO 300 UNITS/3 ML VIAL. SQ SCH ×6 (09:02→17:27)
[2020-11-12] MEDS: METOCLOPRAMIDE 10 MG TABLET. PO SCH ×2 (09:03→15:47)
[2020-11-12] MEDS: POTASSIUM CHLORIDE 20 MEQ TABLET.ER. PO SCH (09:03)
[2020-11-12] MEDS: FOLIC ACID 1 MG TABLET. PO SCH (09:03)
[2020-11-12] MEDS: DICYCLOMINE HCL 10 MG CAPSULE PO SCH (09:03)
[2020-11-12] MEDS: AMITRIPTYLINE HCL 25 MG TABLET. PO SCH (09:03)
[2020-11-12] MEDS: LIDOCAINE (700MG/PATCH) PATCH. TD SCH (09:04)
[2020-11-12 11:24] VITALS: BP 105/6
--- NOTE | 2020-11-12 11:56 | NUR ---
CBG of [address] Cr. Orders for 19 units insulin with lunch.
--- NOTE | 2020-11-12 12:45 | PDOC ---
[employer] PROGRESS NOTE Date of Service DOS: DATE: 11/12/20 TIME: 12:42 Chief Complaint Chief Complaint A/P: Shortness of breath COVID-19 infection Acute hypoxic respiratory failure - due to covid 19 Intractable nausea vomiting diarrhea, possibly related to viral infection Mild hyponatremia Fibromyalgia History of seizures Rheumatoid arthritis Hypokalemia Type II diabetes mellitus - a1C 6.7, newly diagnosed Hyponatremia - nutritional FEN - clear liquid diet PPX - lovenox FULL CODE Dispo - inpatient for covid 19 History of Present Illness History of Present Illness Ms Jara is a 50 yo F With PMHx of fibromyalgia, seizures, asthma, who went to [place] ED with 5 days of chills, myalgia, dizziness and had worsening symptoms. She also had nausea and vomiting and abdominal pain and some incontinence of stool and urine in the last 3 days. Patient states that she has had 3 episodes of diarrhea today and multiple episodes of nausea vomiting today. She was tested for Covid at [facility] and was found to be positive. She did receive 1 dose of Remdesivir and then she was transferred over to [facility] because there is no beds at [facility]. There are no alleviating or aggravating factors. She did recently finished antibiotics 2 weeks ago for an ear infection, she did take Augmentin. Denies fevers, chest pain, shortness of breath, bloody stools or hematuria. Patient did not get vaccinated for Covid because her PCP told her that she was having multiple infections and told her to wait until these improved. 11/07: Patient evaluated at bedside. She was resting in bed on room air with a lot of coughing. She was very pleasant. Restart remdesivir today 11/08: Patient evaluated at bedside. She was up in chair resting when I evaluated her. She says her cough is still lingering but definitely improved. Continuing ongoing Covid treatment. 11/09: NA 135, K3.4, CR 1.1, glucose 191. Episode of vomiting yesterday. Not eating much. Still significant cough with some right-sided rib pain and bilateral groin pain after lifting. 11/10: Afebrile overnight. NA 132. She was feeling better this morning but then sat up and has more right sided rib pain. Able to eat without vomiting today. On 3 L O2 saturation 91% 11/11: Afebrile overnight. NA 131. Still not eating much at all. Chest radiograph with diffuse interstitial infiltrates and cardiomegaly. No further vomiting. Still requiring 3 L nasal cannula oxygen with O2 saturations 91 to 92%. She thinks she might be feeling better overall. Pain is better Given Lasix with improvement in her O2 saturations her pain is better controlled. NA 132. She felt so much better she got up to the bathroom on her own but her O2 saturations dropped to 77%. Placed back on 8 L currently, will reevaluate as she likely will only require 3 to 4 L as she did prior to her episode getting up to the restroom. Vitals/I&O Vitals/I&O: Vital Signs Date Time Temp Pulse Resp B/P (MAP) Pulse Ox O2 Delivery O2 Flow Rate FiO2 11/12/20 11:24 98.1 68 20 105/6 (39) 88 Nasal Cannula 4.0 98.1 I & O 11/11/20 11/11/20 11/12/20 15:00 23:00 07:00 Intake Total 240 ml 1120 ml Balance 240 ml 1120 ml Physical Exam General: Alert, Oriented X3, Cooperative Heart: Regular rate, Normal S1, Normal S2 Lungs: Crackles Abdomen: Normal bowel sounds, Soft, No tenderness Extremities: No edema, Normal pulses Skin: No significant lesion Labs Labs: Laboratory Tests Test 11/11/20 14:59 11/11/20 16:29 11/11/20 19:36 11/12/20 07:00 Glucose (Fingerstick) 335 mg/dL (70-99) 341 mg/dL (70-99) 245 mg/dL (70-99) Sodium Level 132 mmol/L (136-145) Potassium Level 4.0 mmol/L (3.5-5.1) Chloride Level 93 mmol/L (98-107) Carbon Dioxide Level 33 mmol/L (21-32) Anion Gap 6 (6-14) Blood Urea Nitrogen 23 mg/dL (7-20) Creatinine 0.9 mg/dL (0.6-1.0) Estimated GFR (Cockcroft-Gault) 65.8 BUN/Creatinine Ratio 26 (6-20) Glucose Level 357 mg/dL (70-99) Calcium Level 7.9 mg/dL (8.5-10.1) Total Bilirubin 0.2 mg/dL (0.2-1.0) Aspartate Amino Transf (AST/SGOT) 9 U/L (15-37) Alanine Aminotransferase (ALT/SGPT) 35 U/L (14-59) Alkaline Phosphatase 152 U/L (46-116) LK-Sjo-Q-Type Natriuretic Peptide 108 pg/mL (0-124) Total Protein 6.4 g/dL (6.4-8.2) Albumin 2.3 g/dL (3.4-5.0) Albumin/Globulin Ratio 0.6 (1.0-1.7) Test 11/12/20 07:25 11/12/20 11:44 Glucose (Fingerstick) 351 mg/dL (70-99) 355 mg/dL (70-99) Comment Review of Relevant I have reviewed the following items shawanda (where applicable) has been applied. Medications: Current Medications Medications (Trade) Dose Ordered Sig/Alex Route PRN Reason Start Time Stop Time Status Last Admin Dose Admin Insulin Glargine (Lantus Syringe) 20 unit QHS SQ 11/11/20 21:00 11/11/20 20:51 Justifications for Admission Other Justification COVID-19 infection VICTORIA HERNANDEZ MD Nov 12, 2020 12:45
[2020-11-12] MEDS: FUROSEMIDE 40 MG TABLET. PO SCH (13:26)
[2020-11-12 15:00] VITALS: BP 112/80
--- NOTE | 2020-11-12 15:26 | NUR ---
report given to JESUS Feliz. Patient transferred via bed to room 512 on 8L NC
[2020-11-12] MEDS: guaiFENesin DM 200MG/20MG 10 ML SYRUP PO PRN (17:25)
[2020-11-12 19:00] VITALS: BP_SYST 125; BP_SYST 137; BP_DIAS 71; BP_DIAS 74
[2020-11-12] MEDS: ATORVASTATIN CALCIUM 20 MG TABLET PO SCH (21:24)
[2020-11-12] MEDS: MONTELUKAST SODIUM 10 MG TABLET. PO SCH (21:24)
[2020-11-12] MEDS: INSULIN GLARGINE SYRINGE. SQ SCH (21:25)
[2020-11-12] MEDS: PATCH REMOVAL. MC SCH (21:29)
[2020-11-12] MEDS: ZOLPIDEM 5 MG TABLET. PO PRN (21:44)
[2020-11-12 23:00] VITALS: BP 137/86
[2020-11-13 03:00] VITALS: BP 133/76
[2020-11-13] MEDS: methylPREDNISolone SOD SUCC PF 40 MG/ML VIAL. IV SCH (06:03)
[2020-11-13 07:00] VITALS: BP 164/72
--- NOTE | 2020-11-13 07:57 | PDOC ---
[employer] PROGRESS NOTE Date of Service DOS: DATE: 11/13/20 TIME: 07:55 Chief Complaint Chief Complaint A/P: Shortness of breath COVID-19 infection Acute hypoxic respiratory failure - due to covid 19, s/p remdesivir, still on steroids. Will check CRP. LFTs are WNL, may benefit from actemra or baricitinib if CRP elevated and would need pulm or ID consultation to order. Intractable nausea vomiting diarrhea, possibly related to viral infection Fibromyalgia History of seizures Rheumatoid arthritis Hypokalemia Type II diabetes mellitus - a1C 6.7, newly diagnosed Hyponatremia - nutritional Severe protein calorie malnutrition - was on PPN FEN - Regular diet PPX - lovenox FULL CODE Dispo - inpatient for covid 19 History of Present Illness History of Present Illness Ms Jara is a 50 yo F With PMHx of fibromyalgia, seizures, asthma, who went to [facility] ED with 5 days of chills, myalgia, dizziness and had worsening symptoms. She also had nausea and vomiting and abdominal pain and some incontinence of stool and urine in the last 3 days. Patient states that she has had 3 episodes of diarrhea today and multiple episodes of nausea vomiting today. She was tested for Covid at [facility] and was found to be positive. She did receive 1 dose of Remdesivir and then she was transferred over to [facility] because there is no beds at [facility]. There are no alleviating or aggravating factors. She did recently finished antibiotics 2 weeks ago for an ear infection, she did take Augmentin. Denies fevers, chest pain, shortness of breath, bloody stools or hematuria. Patient did not get vaccinated for Covid because her PCP told her that she was having multiple infections and told her to wait until these improved. 11/07: Patient evaluated at bedside. She was resting in bed on room air with a lot of coughing. She was very pleasant. Restart remdesivir today 11/08: Patient evaluated at bedside. She was up in chair resting when I evaluated her. She says her cough is still lingering but definitely improved. Continuing ongoing Covid treatment. 11/09: NA 135, K3.4, CR 1.1, glucose 191. Episode of vomiting yesterday. Not eating much. Still significant cough with some right-sided rib pain and bilateral groin pain after lifting. 11/10: Afebrile overnight. NA 132. She was feeling better this morning but then sat up and has more right sided rib pain. Able to eat without vomiting today. On 3 L O2 saturation 91% 11/11: Afebrile overnight. NA 131. Still not eating much at all. Chest radiograph with diffuse interstitial infiltrates and cardiomegaly. No further vomiting. Still requiring 3 L nasal cannula oxygen with O2 saturations 91 to 92%. She thinks she might be feeling better overall. Pain is better 11/12: Given Lasix with improvement in her O2 saturations her pain is better controlled. NA 132. She felt so much better she got up to the bathroom on her own but her O2 saturations dropped to 77%. Placed back on 8 L currently, will reevaluate as she likely will only require 3 to 4 L as she did prior to her episode getting up to the restroom. Afebrile. NA 132. She says she feels better. Her O2 needs have increased requiring 8 L nasal cannula. Glucose still in 300s. Vitals/I&O Vitals/I&O: Vital Signs Date Time Temp Pulse Resp B/P (MAP) Pulse Ox O2 Delivery O2 Flow Rate FiO2 11/13/20 03:00 96.6 89 22 133/76 (95) 93 96.6 11/12/20 20:00 Nasal Cannula 4.0 I & O 11/12/20 11/12/20 11/13/20 15:00 23:00 07:00 Intake Total 400 ml Output Total 1600 ml 1000 ml Balance 400 ml -1600 ml -1000 ml Physical Exam General: Alert, Oriented X3, Cooperative Heart: Regular rate, Normal S1, Normal S2 Lungs: Crackles Abdomen: Normal bowel sounds, Soft, No tenderness Extremities: No edema, Normal pulses Skin: No significant lesion Labs Labs: Laboratory Tests Test 11/12/20 11:44 11/12/20 17:08 11/12/20 20:42 Glucose (Fingerstick) 355 mg/dL (70-99) 268 mg/dL (70-99) 314 mg/dL (70-99) Comment Review of Relevant I have reviewed the following items shawanda (where applicable) has been applied. Medications: Current Medications Medications (Trade) Dose Ordered Sig/Alex Route PRN Reason Start Time Stop Time Status Last Admin Dose Admin Furosemide (Lasix) 40 mg DAILY PO 11/12/20 12:45 11/14/20 09:01 11/12/20 13:26 Guaifenesin (Robitussin Dm) 10 ml PRN Q6HRS PRN PO COUGH 11/12/20 16:30 11/12/20 17:25 Justifications for Admission Other Justification COVID-19 infection VICTORIA HERNANDEZ MD Nov 13, 2020 07:57
[2020-11-13] MEDS: ZINC SULFATE 220 MG CAPSULE. PO SCH (08:46)
[2020-11-13] MEDS: FOLIC ACID 1 MG TABLET. PO SCH (08:46)
[2020-11-13] MEDS: MAGNESIUM OXIDE 400 MG TABLET PO SCH (08:46)
[2020-11-13] MEDS: FUROSEMIDE 40 MG TABLET. PO SCH (08:47)
[2020-11-13] MEDS: POTASSIUM CHLORIDE 20 MEQ TABLET.ER. PO SCH (08:47)
[2020-11-13] MEDS: DICYCLOMINE HCL 10 MG CAPSULE PO SCH (08:47)
[2020-11-13] MEDS: AMITRIPTYLINE HCL 25 MG TABLET. PO SCH (08:47)
[2020-11-13] MEDS: METOCLOPRAMIDE 10 MG TABLET. PO SCH ×2 (08:47→16:07)
[2020-11-13] MEDS: PANTOPRAZOLE 40 MG TABLET.DR. PO SCH (08:47)
[2020-11-13] MEDS: BENZONATATE 100 MG CAPSULE. PO SCH ×3 (08:48→21:48)
[2020-11-13] MEDS: METOPROLOL SUCC 24HR ER 50 MG TAB.ER.24H. PO SCH (08:48)
[2020-11-13] MEDS: ASCORBIC ACID 1,000 MG TABLET PO SCH ×3 (08:50→21:48)
[2020-11-13] MEDS: THIAMINE 100 MG TABLET. PO SCH (08:50)
[2020-11-13] MEDS: IPRATROPIUM/ALBUTEROL 20/100mcg/INH INHALER. INH SCH ×4 (08:50→20:00)
[2020-11-13] MEDS: CITALOPRAM 20 MG TABLET. PO SCH (08:50)
[2020-11-13] MEDS: ENOXAPARIN 40 MG/0.4 ML SYRINGE. SQ SCH ×2 (08:50→21:49)
[2020-11-13] MEDS: INSULIN LISPRO 300 UNITS/3 ML VIAL. SQ SCH ×6 (08:52→17:41)
[2020-11-13] MEDS: LIDOCAINE (700MG/PATCH) PATCH. TD SCH (09:11)
--- NOTE | 2020-11-13 10:29 | NUR ---
SW following. Discussed with RN, pt transferred from 562, now on 12L oxygen (does not use oxygen at home). COVID-19 positive. Pt not ready for discharge. SW will continue to follow.
[2020-11-13 10:55] LABS: ALBUMIN 2.3 g/dL (3.4-5.0); ALBUMIN/GLOBULIN RATIO 0.5 (1.0-1.7); CALCIUM 7.8 mg/dL (8.5-10.1); GFR 58.2; POTASSIUM 4.1 mmol/L (3.5-5.1); TOTAL BILIRUBIN 0.3 mg/dL (0.2-1.0); TOTAL PROTEIN 6.5 g/dL (6.4-8.2)
[2020-11-13 11:00] VITALS: BP 131/78
[2020-11-13] MEDS: ALBUTEROL SULFATE 8GM INHALER. INH PRN (12:45)
--- NOTE | 2020-11-13 13:55 | RAD ---
XR CHEST 1V CLINICAL INDICATIONS: Reason: Worsening hypoxia / Spl. Instructions: / History: COMPARISON: November 10, 2020. Findings: Diffuse bilateral lung infiltrates are again evident and have not changed significantly. Th ere is a new small right-sided pleural effusion. No pneumothorax is seen. The heart size and mediasti num are stable. IMPRESSION: Unchanged bilateral diffuse lung infiltrates. New small right-sided pleural effusion. Electronically signed by: Reynaldo Gamino MD (11/13/2020 1:52 PM) [id number]
[2020-11-13 15:00] VITALS: BP 135/74
[2020-11-13 19:00] VITALS: BP 139/83
[2020-11-13] MEDS: INSULIN GLARGINE SYRINGE. SQ SCH (21:00)
[2020-11-13] MEDS: PATCH REMOVAL. MC SCH (21:00)
[2020-11-13] MEDS: MONTELUKAST SODIUM 10 MG TABLET. PO SCH (21:48)
[2020-11-13] MEDS: CYCLOBENZAPRINE 10 MG TABLET. PO PRN (21:48)
[2020-11-13] MEDS: MORPHINE SULFATE 2 MG/ML INJ. IVP PRN (21:49)
[2020-11-13] MEDS: ATORVASTATIN CALCIUM 20 MG TABLET PO SCH (21:49)
[2020-11-13 23:00] VITALS: BP 124/74
[2020-11-14 03:00] VITALS: BP 104/62
[2020-11-14 07:00] VITALS: BP 106/61
[2020-11-14 07:48] LABS: CREATININE 0.8 mg/dL (0.6-1.0); GFR 75.3; POTASSIUM 3.7 mmol/L (3.5-5.1)
[2020-11-14 08:00] LABS: ALBUMIN 2.4 g/dL (3.4-5.0); C-REACTIVE PROTEIN 3.9 mg/L (0-3.3); DIRECT BILIRUBIN 0.1 mg/dL (0.0-0.2); TOTAL BILIRUBIN 0.3 mg/dL (0.2-1.0); TOTAL PROTEIN 5.7 g/dL (6.4-8.2)
[2020-11-14] MEDS: INSULIN LISPRO 300 UNITS/3 ML VIAL. SQ SCH ×6 (08:00→17:47)
[2020-11-14] MEDS: ZINC SULFATE 220 MG CAPSULE. PO SCH (10:07)
[2020-11-14] MEDS: MAGNESIUM OXIDE 400 MG TABLET PO SCH (10:07)
[2020-11-14] MEDS: DICYCLOMINE HCL 10 MG CAPSULE PO SCH (10:08)
[2020-11-14] MEDS: ENOXAPARIN 40 MG/0.4 ML SYRINGE. SQ SCH ×2 (10:08→20:26)
[2020-11-14] MEDS: guaiFENesin DM 200MG/20MG 10 ML SYRUP PO PRN ×2 (10:08→20:23)
[2020-11-14] MEDS: AMITRIPTYLINE HCL 25 MG TABLET. PO SCH (10:09)
[2020-11-14] MEDS: CITALOPRAM 20 MG TABLET. PO SCH (10:09)
[2020-11-14] MEDS: METOPROLOL SUCC 24HR ER 50 MG TAB.ER.24H. PO SCH (10:09)
[2020-11-14] MEDS: FUROSEMIDE 40 MG TABLET. PO SCH (10:09)
[2020-11-14] MEDS: LIDOCAINE (700MG/PATCH) PATCH. TD SCH (10:09)
[2020-11-14] MEDS: DEXAMETHASONE 4 MG TABLET PO SCH (10:10)
[2020-11-14] MEDS: METOCLOPRAMIDE 10 MG TABLET. PO SCH ×2 (10:10→17:45)
[2020-11-14] MEDS: BENZONATATE 100 MG CAPSULE. PO SCH ×3 (10:10→20:23)
[2020-11-14] MEDS: FOLIC ACID 1 MG TABLET. PO SCH (10:10)
[2020-11-14] MEDS: ASCORBIC ACID 1,000 MG TABLET PO SCH ×3 (10:10→20:23)
[2020-11-14] MEDS: PANTOPRAZOLE 40 MG TABLET.DR. PO SCH (10:10)
[2020-11-14] MEDS: POTASSIUM CHLORIDE 20 MEQ TABLET.ER. PO SCH (10:10)
[2020-11-14] MEDS: THIAMINE 100 MG TABLET. PO SCH (10:11)
[2020-11-14] MEDS: IPRATROPIUM/ALBUTEROL 20/100mcg/INH INHALER. INH SCH ×4 (10:11→20:22)
[2020-11-14] MEDS: traMADol 50 MG TABLET PO PRN (10:15)
[2020-11-14] MEDS: CYCLOBENZAPRINE 10 MG TABLET. PO PRN ×2 (10:15→20:23)
[2020-11-14] MEDS: MORPHINE SULFATE 2 MG/ML INJ. IVP PRN (10:34)
[2020-11-14 11:00] VITALS: BP 107/66
[2020-11-14] MEDS ORDERED: KETOROLAC 30 MG/ML VIAL. IVP PRN (14:45)
--- NOTE | 2020-11-14 14:55 | PDOC ---
GENERAL General: Patient examined chart reviewed today's hospital day 9 for this patient with COVID-19 pneumonia and significant right lower chest pleurisy. She is finally coming down on her oxygen requirements though the pain is very significant. We will add short-term Toradol and oxycodone and discontinue the tramadol which she has not been using much anyway. She is up and moving about the room but this pain is limiting. We appreciate subspecialty support. Continue current management otherwise. Time spent today is 30 minutes with greater than 50% in counseling and coordination of care most of which in discussion with patient. The patient was seen in full isolation gear including N95 respirator covered with a surgical mask, goggles covering eyewear, and contact isolation robe and hair cover. Problems: (1) Pneumonia due to COVID-19 virus (2) Atypical chest pain VITAL SIGNS Vital Signs/I&O: Vital Signs Date Time Temp Pulse Resp B/P (MAP) Pulse Ox O2 Delivery O2 Flow Rate FiO2 11/14/20 11:00 98.0 70 18 107/66 (80) 96 Nasal Cannula 4.0 98.0 I & O 11/13/20 11/13/20 11/14/20 15:00 23:00 07:00 Intake Total 500 ml 200 ml Balance 500 ml 200 ml In general the patient is pleasant alert and oriented x3 in distress from significant right sharp respirophasic lower chest pain HEENT exam is unremarkable for acute abnormality Neck is soft and supple no adenopathy or thyromegaly noted Chest bilateral equal air entry though diminished throughout. No chest wall deformity or tenderness is noted Heart S1-S2 normal regular rate and rhythm no murmurs or gallops are noted Abdomen soft nontender nondistended no masses organomegaly noted Extremity exam is unremarkable for acute abnormality ALLERGIES Allergies: Allergies Coded Allergies Type Severity Reaction Last Updated Verified Sulfa (Sulfonamide Antibiotics) Allergy Intermediate 11/06/20 Yes acetaminophen Allergy Intermediate 11/06/20 Yes duloxetine Allergy Intermediate 11/06/20 Yes MEDS Medications: Current Medications Medications (Trade) Dose Ordered Sig/Alex Start Time Stop Time Status Last Admin Dose Admin Acetaminophen (Tylenol) 650 mg PRN Q4HRS PRN 11/06/20 16:30 11/06/20 21:50 DC Albuterol Sulfate (Ventolin Hfa) 1 puff PRN Q4HRS PRN 11/06/20 18:45 11/13/20 12:45 Albuterol/ Ipratropium (Combivent Respimat 20-100 Mcg) 1 puff RTQID 11/06/20 20:00 11/14/20 12:00 Amino Acids/ Electrolytes/ Dextrose 1,000 ml @ 80 mls/hr [id number] 11/09/20 10:30 11/12/20 15:42 DC 11/11/20 23:54 Amitriptyline HCl (Elavil) 25 mg DAILY 11/07/20 09:00 11/14/20 10:09 Ascorbic Acid (Vitamin C) 3,000 mg TID 11/06/20 21:00 11/14/20 10:10 Atorvastatin Calcium (Lipitor) 20 mg HS 11/06/20 21:00 11/13/20 21:49 Benzonatate (Tessalon Perle) 100 mg [id number] 11/09/20 21:00 11/14/20 10:10 Chlorthalidone (Thalitone) 25 mg DAILY 11/07/20 09:00 11/09/20 07:50 DC 11/08/20 08:30 Citalopram Hydrobromide (CeleXA) 20 mg DAILY 11/07/20 09:00 11/14/20 10:09 Cyclobenzaprine HCl (Flexeril) 10 mg PRN TID PRN 11/09/20 07:45 11/14/20 10:15 Dexamethasone (Decadron) 4 mg [id number] 11/14/20 08:00 11/14/20 10:10 Dextrose (Dextrose 50%-Water Syringe) 12.5 gm PRN Q15MIN PRN 11/09/20 08:00 Dicyclomine HCl (Bentyl) 10 mg DAILY 11/07/20 09:00 11/14/20 10:08 Docusate Sodium (Colace) 100 mg PRN DAILY PRN 11/06/20 16:30 Doxepin HCl (SINEquan) 25 mg PRN Q4HRS PRN 11/06/20 19:15 11/06/20 21:33 Enoxaparin Sodium (Lovenox 40mg Syringe) 40 mg BID 11/07/20 21:00 11/14/20 10:08 Folic Acid (Folic Acid) 1 mg DAILY 11/07/20 09:00 11/14/20 10:10 Furosemide (Lasix) 40 mg DAILY 11/12/20 12:45 11/14/20 09:01 DC 11/14/20 10:09 Guaifenesin (Robitussin Dm) 10 ml PRN Q6HRS PRN 11/12/20 16:30 11/14/20 10:08 Guaifenesin/ Codeine Phosphate (Robitussin Ac) 5 ml PRN Q6HRS PRN 11/06/20 21:45 11/09/20 07:48 DC 11/08/20 13:09 Ibuprofen (Motrin) 600 mg PRN Q6HRS PRN 11/06/20 21:45 11/09/20 07:48 DC 11/08/20 13:14 Insulin Glargine (Lantus Syringe) 30 unit QHS 11/13/20 21:00 11/13/20 21:00 Insulin Human Lispro (HumaLOG) 8 units [id number] 11/13/20 08:00 11/13/20 17:41 Lidocaine (Lidoderm) 1 patch DAILY 11/09/20 10:30 11/14/20 10:09 Magnesium Oxide (Magnesium Oxide) 400 mg DAILY 11/07/20 09:00 11/14/20 10:07 Magnesium Sulfate/ Dextrose 100 ml @ 100 mls/hr 1X ONCE 11/06/20 16:30 11/06/20 17:29 DC 11/06/20 16:58 Methylprednisolone Sodium Succinate (SOLU-Medrol 40MG VIAL) 40 mg Q8HRS 11/06/20 17:00 11/13/20 07:55 DC 11/13/20 06:03 Metoclopramide HCl (Reglan) 10 mg BIDAC 11/07/20 07:30 11/14/20 10:10 Metoprolol Succinate (Toprol Xl) 50 mg DAILY 11/07/20 09:00 11/14/20 10:09 Miscellaneous (Lidoderm Patch Removal) 1 ea QHS 11/09/20 21:00 11/13/20 21:00 Montelukast Sodium (Singulair) 10 mg HS 11/09/20 21:00 11/13/20 21:48 Morphine Sulfate (Morphine Sulfate) 2 mg PRN Q2HR PRN 11/08/20 15:30 11/14/20 10:34 Ondansetron HCl (Zofran) 4 mg PRN Q6HRS PRN 11/06/20 16:30 11/06/20 17:03 Pantoprazole Sodium (Protonix) 40 mg DAILYAC 11/06/20 16:30 11/14/20 10:10 Potassium Chloride (Klor-Con) 20 meq DAILY 11/09/20 09:00 11/14/20 10:10 Prochlorperazine Edisylate (Compazine) 10 mg PRN Q6HRS PRN 11/06/20 16:30 Remdesivir 100 mg/ Sodium Chloride 230 ml @ 460 mls/hr Q24H 11/07/20 11:30 11/10/20 11:59 DC 11/10/20 12:34 Sennosides (Senna) 17.2 mg PRN BID PRN 11/06/20 16:30 Sodium Chloride 1,000 ml @ 75 mls/hr [id number] 11/06/20 16:15 11/09/20 07:48 DC 11/08/20 21:00 Sumatriptan Succinate (Imitrex) 50 mg PRN DAILY PRN 11/06/20 19:30 11/12/20 15:48 Thiamine Mononitrate (Vitamin B-1) 300 mg DAILY 11/06/20 17:00 11/14/20 10:11 Tramadol HCl (Ultram) 50 mg PRN Q6HRS PRN 11/09/20 10:30 11/14/20 10:15 Zinc Sulfate (Orazinc) 220 mg DAILY 11/09/20 10:30 11/14/20 10:07 Zolpidem Tartrate (Ambien) 5 mg PRN QHS PRN 11/06/20 21:45 11/12/20 21:44 Current Medications Medications (Trade) Dose Ordered Sig/Alex Route PRN Reason Start Time Stop Time Status Last Admin Dose Admin Insulin Glargine (Lantus Syringe) 30 unit QHS SQ 11/13/20 21:00 11/13/20 21:00 Dexamethasone (Decadron) 4 mg [id number] PO 11/14/20 08:00 11/14/20 10:10 LAB Lab: Laboratory Tests Test 11/13/20 17:01 11/13/20 20:22 11/14/20 06:15 11/14/20 08:27 Glucose (Fingerstick) 233 mg/dL (70-99) H 190 mg/dL (70-99) H 81 mg/dL (70-99) Sodium Level 136 mmol/L (136-145) Potassium Level 3.7 mmol/L (3.5-5.1) Chloride Level 98 mmol/L (98-107) Carbon Dioxide Level 33 mmol/L (21-32) H Anion Gap 5 (6-14) L Blood Urea Nitrogen 20 mg/dL (7-20) Creatinine 0.8 mg/dL (0.6-1.0) Estimated GFR (Cockcroft-Gault) 75.3 Glucose Level 93 mg/dL (70-99) Calcium Level 8.0 mg/dL (8.5-10.1) L Total Bilirubin 0.3 mg/dL (0.2-1.0) Direct Bilirubin 0.1 mg/dL (0.0-0.2) Aspartate Amino Transferase (AST) 13 U/L (15-37) L Alanine Aminotransferase (ALT) 29 U/L (14-59) Alkaline Phosphatase 134 U/L (46-116) H C-Reactive Protein, Quantitative 3.9 mg/L (0-3.3) H Total Protein 5.7 g/dL (6.4-8.2) L Albumin 2.4 g/dL (3.4-5.0) L Test 11/14/20 12:06 Glucose (Fingerstick) 110 mg/dL (70-99) H Laboratory Tests 11/14/20 06:15 ASSESSMENT & PLAN A&P Plan as noted above This note was created using [employer] and may have omissions and/or errors due to the nature of real-time voice veterinary bacteriologist. Justifications for Admission Other Justification COVID-19 infection GENET KELLY MD Nov 14, 2020 14:55
[2020-11-14] MEDS: oxyCODONE IR 5 MG TABLET PO PRN ×2 (14:56→20:24)
[2020-11-14 15:00] VITALS: BP 127/71
[2020-11-14 19:00] VITALS: BP 103/59
[2020-11-14] MEDS: PATCH REMOVAL. MC SCH (20:22)
[2020-11-14] MEDS: DOXEPIN HCL 25 MG CAPSULE. PO PRN (20:23)
[2020-11-14] MEDS: MONTELUKAST SODIUM 10 MG TABLET. PO SCH (20:23)
[2020-11-14] MEDS: ATORVASTATIN CALCIUM 20 MG TABLET PO SCH (20:23)
[2020-11-14] MEDS: ZOLPIDEM 5 MG TABLET. PO PRN (20:24)
[2020-11-14] MEDS: INSULIN GLARGINE SYRINGE. SQ SCH (21:11)
[2020-11-14 23:00] VITALS: BP 113/61
[2020-11-15 03:00] VITALS: BP 112/63
[2020-11-15] MEDS: oxyCODONE IR 5 MG TABLET PO PRN ×2 (05:56→10:29)
[2020-11-15] MEDS: PANTOPRAZOLE 40 MG TABLET.DR. PO SCH (05:56)
[2020-11-15] MEDS: METOCLOPRAMIDE 10 MG TABLET. PO SCH ×2 (05:56→17:24)
[2020-11-15 06:55] LABS: ALBUMIN 2.3 g/dL (3.4-5.0); ALBUMIN/GLOBULIN RATIO 0.6 (1.0-1.7); CREATININE 0.8 mg/dL (0.6-1.0); GFR 75.3; POTASSIUM 3.9 mmol/L (3.5-5.1); TOTAL BILIRUBIN 0.3 mg/dL (0.2-1.0); TOTAL PROTEIN 6.2 g/dL (6.4-8.2)
[2020-11-15 07:00] VITALS: BP 108/53
[2020-11-15 07:03] LABS: BASO % 0 % (0-3); EOS % 0 % (0-3); HEMATOCRIT 39.1 % (36.0-47.0); HEMOGLOBIN 12.6 g/dL (12.0-15.5); LYMPH # 1.7 x10^3/uL (1.0-4.8); LYMPH % 15 % (24-48); MEAN CORPUSCULAR HEMOGLOBIN 25 pg (25-35); MEAN CORPUSCULAR HGB CONC 32 g/dL (31-37); MEAN CORPUSCULAR VOLUME 77 fL (79-100); MONO # 0.8 x10^3/uL (0.0-1.1); MONO % 7 % (0-9); NEUT % 78 % (31-73); PLATELET COUNT 560 x10^3/uL (140-400); RED BLOOD COUNT 5.06 x10^6/uL (3.50-5.40); RED CELL DISTRIBUTION WIDTH 15.9 % (11.5-14.5); WHITE BLOOD COUNT 11.6 x10^3/uL (4.0-11.0)
[2020-11-15 07:09] LABS: CALCIUM 7.6 mg/dL (8.5-10.1)
[2020-11-15] MEDS: INSULIN LISPRO 300 UNITS/3 ML VIAL. SQ SCH ×6 (08:00→17:27)
[2020-11-15] MEDS: IPRATROPIUM/ALBUTEROL 20/100mcg/INH INHALER. INH SCH ×4 (09:01→21:31)
[2020-11-15] MEDS: BENZONATATE 100 MG CAPSULE. PO SCH ×3 (09:02→21:30)
[2020-11-15] MEDS: FOLIC ACID 1 MG TABLET. PO SCH (09:02)
[2020-11-15] MEDS: LIDOCAINE (700MG/PATCH) PATCH. TD SCH (09:02)
[2020-11-15] MEDS: ASCORBIC ACID 1,000 MG TABLET PO SCH ×3 (09:02→21:30)
[2020-11-15] MEDS: POTASSIUM CHLORIDE 20 MEQ TABLET.ER. PO SCH (09:02)
[2020-11-15] MEDS: DICYCLOMINE HCL 10 MG CAPSULE PO SCH (09:02)
[2020-11-15] MEDS: DEXAMETHASONE 4 MG TABLET PO SCH (09:03)
[2020-11-15] MEDS: METOPROLOL SUCC 24HR ER 50 MG TAB.ER.24H. PO SCH (09:03)
[2020-11-15] MEDS: ZINC SULFATE 220 MG CAPSULE. PO SCH (09:03)
[2020-11-15] MEDS: THIAMINE 100 MG TABLET. PO SCH (09:03)
[2020-11-15] MEDS: CITALOPRAM 20 MG TABLET. PO SCH (09:03)
[2020-11-15] MEDS: AMITRIPTYLINE HCL 25 MG TABLET. PO SCH (09:03)
[2020-11-15] MEDS: MAGNESIUM OXIDE 400 MG TABLET PO SCH (09:03)
[2020-11-15] MEDS: ENOXAPARIN 40 MG/0.4 ML SYRINGE. SQ SCH ×2 (09:04→21:30)
[2020-11-15 11:00] VITALS: BP 104/70
--- NOTE | 2020-11-15 11:11 | PDOC ---
GENERAL General: Patient examined chart reviewed no events overnight noted. Patient had a quiet night tells me that the new regimen for her pleurisy is working great in fact wants to try to go home today. At the time of my evaluation she is on 9 L of oxygen and I told her that we needed to see her at consistently under 3 before we could let her go home on supplemental oxygen. Hopefully that will happen in the next 24 hours. She is agreeable to that plan. Problems: (1) Pneumonia due to COVID-19 virus (2) Atypical chest pain VITAL SIGNS Vital Signs/I&O: Vital Signs Date Time Temp Pulse Resp B/P (MAP) Pulse Ox O2 Delivery O2 Flow Rate FiO2 11/15/20 10:29 Nasal Cannula 8.0 11/15/20 09:03 81 108/53 11/15/20 07:00 98.2 18 93 98.2 I & O 11/14/20 11/14/20 11/15/20 15:00 23:00 07:00 Intake Total 600 ml Balance 600 ml In general the patient is a lot more comfortable this morning tells me she slept great no acute distress HEENT exam is unremarkable for acute abnormality Neck is soft and supple no adenopathy or thyromegaly noted Chest bilateral equal air entry though diminished throughout inspiratory and expiratory fine crackles throughout Heart S1-S2 normal regular rate and rhythm no murmurs or gallops are noted Abdomen soft nontender nondistended no masses organomegaly noted Extremity exam is unremarkable for acute abnormality ALLERGIES Allergies: Allergies Coded Allergies Type Severity Reaction Last Updated Verified Sulfa (Sulfonamide Antibiotics) Allergy Intermediate 11/06/20 Yes acetaminophen Allergy Intermediate 11/06/20 Yes duloxetine Allergy Intermediate 11/06/20 Yes MEDS Medications: Current Medications Medications (Trade) Dose Ordered Sig/Alex Start Time Stop Time Status Last Admin Dose Admin Acetaminophen (Tylenol) 650 mg PRN Q4HRS PRN 11/06/20 16:30 11/06/20 21:50 DC Albuterol Sulfate (Ventolin Hfa) 1 puff PRN Q4HRS PRN 11/06/20 18:45 11/13/20 12:45 Albuterol/ Ipratropium (Combivent Respimat 20-100 Mcg) 1 puff RTQID 11/06/20 20:00 11/15/20 09:01 Amino Acids/ Electrolytes/ Dextrose 1,000 ml @ 80 mls/hr [id number] 11/09/20 10:30 11/12/20 15:42 DC 11/11/20 23:54 Amitriptyline HCl (Elavil) 25 mg DAILY 11/07/20 09:00 11/15/20 09:03 Ascorbic Acid (Vitamin C) 3,000 mg TID 11/06/20 21:00 11/15/20 09:02 Atorvastatin Calcium (Lipitor) 20 mg HS 11/06/20 21:00 11/14/20 20:23 Benzonatate (Tessalon Perle) 100 mg [id number] 11/09/20 21:00 11/15/20 09:02 Chlorthalidone (Thalitone) 25 mg DAILY 11/07/20 09:00 11/09/20 07:50 DC 11/08/20 08:30 Citalopram Hydrobromide (CeleXA) 20 mg DAILY 11/07/20 09:00 11/15/20 09:03 Cyclobenzaprine HCl (Flexeril) 10 mg PRN TID PRN 11/09/20 07:45 11/14/20 20:23 Dexamethasone (Decadron) 4 mg [id number] 11/14/20 08:00 11/15/20 09:03 Dextrose (Dextrose 50%-Water Syringe) 12.5 gm PRN Q15MIN PRN 11/09/20 08:00 Dicyclomine HCl (Bentyl) 10 mg DAILY 11/07/20 09:00 11/15/20 09:02 Docusate Sodium (Colace) 100 mg PRN DAILY PRN 11/06/20 16:30 11/14/20 20:23 Doxepin HCl (SINEquan) 25 mg PRN Q4HRS PRN 11/06/20 19:15 11/14/20 20:23 Enoxaparin Sodium (Lovenox 40mg Syringe) 40 mg BID 11/07/20 21:00 11/15/20 09:04 Folic Acid (Folic Acid) 1 mg DAILY 11/07/20 09:00 11/15/20 09:02 Furosemide (Lasix) 40 mg DAILY 11/12/20 12:45 11/14/20 09:01 DC 11/14/20 10:09 Guaifenesin (Robitussin Dm) 10 ml PRN Q6HRS PRN 11/12/20 16:30 11/14/20 20:23 Guaifenesin/ Codeine Phosphate (Robitussin Ac) 5 ml PRN Q6HRS PRN 11/06/20 21:45 11/09/20 07:48 DC 11/08/20 13:09 Ibuprofen (Motrin) 600 mg PRN Q6HRS PRN 11/06/20 21:45 11/09/20 07:48 DC 11/08/20 13:14 Insulin Glargine (Lantus Syringe) 30 unit QHS 11/13/20 21:00 11/14/20 21:11 Insulin Human Lispro (HumaLOG) 8 units [id number] 11/13/20 08:00 11/15/20 09:10 Ketorolac Tromethamine (Toradol 30mg Vial) 30 mg PRN Q6HRS PRN 11/14/20 14:45 11/16/20 10:00 Lidocaine (Lidoderm) 1 patch DAILY 11/09/20 10:30 11/15/20 09:02 Magnesium Oxide (Magnesium Oxide) 400 mg DAILY 11/07/20 09:00 11/15/20 09:03 Magnesium Sulfate/ Dextrose 100 ml @ 100 mls/hr 1X ONCE 11/06/20 16:30 11/06/20 17:29 DC 11/06/20 16:58 Methylprednisolone Sodium Succinate (SOLU-Medrol 40MG VIAL) 40 mg Q8HRS 11/06/20 17:00 11/13/20 07:55 DC 11/13/20 06:03 Metoclopramide HCl (Reglan) 10 mg BIDAC 11/07/20 07:30 11/15/20 05:56 Metoprolol Succinate (Toprol Xl) 50 mg DAILY 11/07/20 09:00 11/15/20 09:03 Miscellaneous (Lidoderm Patch Removal) 1 ea QHS 11/09/20 21:00 11/14/20 20:22 Montelukast Sodium (Singulair) 10 mg HS 11/09/20 21:00 11/14/20 20:23 Morphine Sulfate (Morphine Sulfate) 2 mg PRN Q2HR PRN 11/08/20 15:30 11/14/20 10:34 Ondansetron HCl (Zofran) 4 mg PRN Q6HRS PRN 11/06/20 16:30 11/06/20 17:03 Oxycodone HCl (Roxicodone) 5 mg PRN Q4HRS PRN 11/14/20 14:45 11/15/20 10:29 Pantoprazole Sodium (Protonix) 40 mg DAILYAC 11/06/20 16:30 11/15/20 05:56 Potassium Chloride (Klor-Con) 20 meq DAILY 11/09/20 09:00 11/15/20 09:02 Prochlorperazine Edisylate (Compazine) 10 mg PRN Q6HRS PRN 11/06/20 16:30 Remdesivir 100 mg/ Sodium Chloride 230 ml @ 460 mls/hr Q24H 11/07/20 11:30 11/10/20 11:59 DC 11/10/20 12:34 Sennosides (Senna) 17.2 mg PRN BID PRN 11/06/20 16:30 Sodium Chloride 1,000 ml @ 75 mls/hr [id number] 11/06/20 16:15 11/09/20 07:48 DC 11/08/20 21:00 Sumatriptan Succinate (Imitrex) 50 mg PRN DAILY PRN 11/06/20 19:30 11/12/20 15:48 Thiamine Mononitrate (Vitamin B-1) 300 mg DAILY 11/06/20 17:00 11/15/20 09:03 Tramadol HCl (Ultram) 50 mg PRN Q6HRS PRN 11/09/20 10:30 11/14/20 14:48 DC 11/14/20 10:15 Zinc Sulfate (Orazinc) 220 mg DAILY 11/09/20 10:30 11/15/20 09:03 Zolpidem Tartrate (Ambien) 5 mg PRN QHS PRN 11/06/20 21:45 11/14/20 20:24 Current Medications Medications (Trade) Dose Ordered Sig/Alex Route PRN Reason Start Time Stop Time Status Last Admin Dose Admin Oxycodone HCl (Roxicodone) 5 mg PRN Q4HRS PRN PO MODERATE TO SEVERE PAIN 11/14/20 14:45 11/15/20 10:29 LAB Lab: Laboratory Tests Test 11/14/20 12:06 11/14/20 16:57 11/14/20 20:51 11/15/20 05:50 Glucose (Fingerstick) 110 mg/dL (70-99) H 251 mg/dL (70-99) H 273 mg/dL (70-99) H White Blood Count 11.6 x10^3/uL (4.0-11.0) H Red Blood Count 5.06 x10^6/uL (3.50-5.40) Hemoglobin 12.6 g/dL (12.0-15.5) Hematocrit 39.1 % (36.0-47.0) Mean Corpuscular Volume 77 fL (79-100) L Mean Corpuscular Hemoglobin 25 pg (25-35) Mean Corpuscular Hemoglobin Concent 32 g/dL (31-37) Red Cell Distribution Width 15.9 % (11.5-14.5) H Platelet Count 560 x10^3/uL (140-400) H Neutrophils (%) (Auto) 78 % (31-73) H Lymphocytes (%) (Auto) 15 % (24-48) L Monocytes (%) (Auto) 7 % (0-9) Eosinophils (%) (Auto) 0 % (0-3) Basophils (%) (Auto) 0 % (0-3) Neutrophils # (Auto) 9.0 x10^3/uL (1.8-7.7) H Lymphocytes # (Auto) 1.7 x10^3/uL (1.0-4.8) Monocytes # (Auto) 0.8 x10^3/uL (0.0-1.1) Eosinophils # (Auto) 0.0 x10^3/uL (0.0-0.7) Basophils # (Auto) 0.0 x10^3/uL (0.0-0.2) Sodium Level 133 mmol/L (136-145) L Potassium Level 3.9 mmol/L (3.5-5.1) Chloride Level 98 mmol/L (98-107) Carbon Dioxide Level 32 mmol/L (21-32) Anion Gap 3 (6-14) L Blood Urea Nitrogen 15 mg/dL (7-20) Creatinine 0.8 mg/dL (0.6-1.0) Estimated GFR (Cockcroft-Gault) 75.3 BUN/Creatinine Ratio 19 (6-20) Glucose Level 136 mg/dL (70-99) H Calcium Level 7.6 mg/dL (8.5-10.1) L Total Bilirubin 0.3 mg/dL (0.2-1.0) Aspartate Amino Transferase (AST) 8 U/L (15-37) L Alanine Aminotransferase (ALT) 21 U/L (14-59) Alkaline Phosphatase 127 U/L (46-116) H Total Protein 6.2 g/dL (6.4-8.2) L Albumin 2.3 g/dL (3.4-5.0) L Albumin/Globulin Ratio 0.6 (1.0-1.7) L Test 11/15/20 08:02 Glucose (Fingerstick) 132 mg/dL (70-99) H Laboratory Tests 11/15/20 05:50 Laboratory Tests 11/15/20 05:50 ASSESSMENT & PLAN A&P Plan as noted above This note was created using [employer] and may have omissions and/or errors due to the nature of real-time voice meal cook. Justifications for Admission Other Justification COVID-19 infection GENET KELLY MD Nov 15, 2020 11:11
[2020-11-15 15:00] VITALS: BP 116/63
[2020-11-15 19:00] VITALS: BP 116/57
[2020-11-15] MEDS: PATCH REMOVAL. MC SCH (21:00)
[2020-11-15] MEDS: MONTELUKAST SODIUM 10 MG TABLET. PO SCH (21:30)
[2020-11-15] MEDS: ATORVASTATIN CALCIUM 20 MG TABLET PO SCH (21:30)
[2020-11-15] MEDS: INSULIN GLARGINE SYRINGE. SQ SCH (21:32)
[2020-11-15] MEDS: ZOLPIDEM 5 MG TABLET. PO PRN (21:52)
[2020-11-15 23:00] VITALS: BP 119/59
[2020-11-16 07:00] VITALS: BP 114/68
[2020-11-16 07:28] LABS: BASO # 0.1 x10^3/uL (0.0-0.2); BASO % 1 % (0-3); EOS # 0.1 x10^3/uL (0.0-0.7); EOS % 1 % (0-3); HEMATOCRIT 36.6 % (36.0-47.0); HEMOGLOBIN 11.9 g/dL (12.0-15.5); LYMPH # 2.4 x10^3/uL (1.0-4.8); LYMPH % 19 % (24-48); MEAN CORPUSCULAR HEMOGLOBIN 25 pg (25-35); MEAN CORPUSCULAR HGB CONC 32 g/dL (31-37); MEAN CORPUSCULAR VOLUME 77 fL (79-100); MONO # 0.8 x10^3/uL (0.0-1.1); MONO % 6 % (0-9); NEUT # 9.3 x10^3/uL (1.8-7.7); NEUT % 73 % (31-73); PLATELET COUNT 513 x10^3/uL (140-400); RED BLOOD COUNT 4.77 x10^6/uL (3.50-5.40); RED CELL DISTRIBUTION WIDTH 15.5 % (11.5-14.5); WHITE BLOOD COUNT 12.8 x10^3/uL (4.0-11.0)
[2020-11-16 07:39] LABS: ALBUMIN 2.1 g/dL (3.4-5.0); ALBUMIN/GLOBULIN RATIO 0.6 (1.0-1.7); CALCIUM 7.7 mg/dL (8.5-10.1); CREATININE 0.8 mg/dL (0.6-1.0); GFR 75.3; POTASSIUM 4.2 mmol/L (3.5-5.1); TOTAL BILIRUBIN 0.3 mg/dL (0.2-1.0); TOTAL PROTEIN 5.7 g/dL (6.4-8.2)
[2020-11-16] MEDS: INSULIN LISPRO 300 UNITS/3 ML VIAL. SQ SCH ×6 (08:00→17:11)
[2020-11-16] MEDS: CITALOPRAM 20 MG TABLET. PO SCH (09:44)
[2020-11-16] MEDS: IPRATROPIUM/ALBUTEROL 20/100mcg/INH INHALER. INH SCH ×4 (09:44→20:24)
[2020-11-16] MEDS: MAGNESIUM OXIDE 400 MG TABLET PO SCH (09:44)
[2020-11-16] MEDS: ZINC SULFATE 220 MG CAPSULE. PO SCH (09:44)
[2020-11-16] MEDS: ASCORBIC ACID 1,000 MG TABLET PO SCH ×3 (09:44→20:24)
[2020-11-16] MEDS: DEXAMETHASONE 4 MG TABLET PO SCH (09:45)
[2020-11-16] MEDS: METOPROLOL SUCC 24HR ER 50 MG TAB.ER.24H. PO SCH (09:45)
[2020-11-16] MEDS: AMITRIPTYLINE HCL 25 MG TABLET. PO SCH (09:45)
[2020-11-16] MEDS: POTASSIUM CHLORIDE 20 MEQ TABLET.ER. PO SCH (09:45)
[2020-11-16] MEDS: BENZONATATE 100 MG CAPSULE. PO SCH ×3 (09:45→20:24)
[2020-11-16] MEDS: METOCLOPRAMIDE 10 MG TABLET. PO SCH ×2 (09:45→17:09)
[2020-11-16] MEDS: DICYCLOMINE HCL 10 MG CAPSULE PO SCH (09:45)
[2020-11-16] MEDS: PANTOPRAZOLE 40 MG TABLET.DR. PO SCH (09:45)
[2020-11-16] MEDS: ENOXAPARIN 40 MG/0.4 ML SYRINGE. SQ SCH ×2 (09:46→20:25)
[2020-11-16] MEDS: FOLIC ACID 1 MG TABLET. PO SCH (09:46)
[2020-11-16] MEDS: LIDOCAINE (700MG/PATCH) PATCH. TD SCH (09:46)
[2020-11-16] MEDS: THIAMINE 100 MG TABLET. PO SCH (09:46)
[2020-11-16 11:00] VITALS: BP 112/51
--- NOTE | 2020-11-16 11:21 | NUR ---
SW following. Discussed with RN, pt from [place], 7L (does not use oxygen at home). COVID-19 positive. SW will continue to follow.
--- NOTE | 2020-11-16 13:19 | PDOC ---
[employer] PROGRESS NOTE Date of Service DOS: DATE: 11/16/20 TIME: 13:18 Chief Complaint Chief Complaint A/P: Shortness of breath COVID-19 infection Acute hypoxic respiratory failure - due to covid 19, s/p remdesivir, still on steroids. Will check CRP. LFTs are WNL, may benefit from actemra or baricitinib if CRP elevated and would need pulm or ID consultation to order. Intractable nausea vomiting diarrhea, possibly related to viral infection Fibromyalgia History of seizures Rheumatoid arthritis Hypokalemia Type II diabetes mellitus - a1C 6.7, newly diagnosed Hyponatremia - nutritional Severe protein calorie malnutrition - was on PPN FEN - Regular diet PPX - lovenox FULL CODE Dispo - inpatient for covid 19 History of Present Illness History of Present Illness Ms Jara is a 50 yo F With PMHx of fibromyalgia, seizures, asthma, who went to [facility] with 5 days of chills, myalgia, dizziness and had worsening symptoms. She also had nausea and vomiting and abdominal pain and some incontinence of stool and urine in the last 3 days. Patient states that she has had 3 episodes of diarrhea today and multiple episodes of nausea vomiting today. She was tested for Covid at [facility] and was found to be positive. She did receive 1 dose of Remdesivir and then she was transferred over to [facility] because there is no beds at [facility]. There are no alleviating or aggravating factors. She did recently finished antibiotics 2 weeks ago for an ear infection, she did take Augmentin. Denies fevers, chest pain, shortness of breath, bloody stools or hematuria. Patient did not get vaccinated for Covid because her PCP told her that she was having multiple infections and told her to wait until these improved. 11/07: Patient evaluated at bedside. She was resting in bed on room air with a lot of coughing. She was very pleasant. Restart remdesivir today 11/08: Patient evaluated at bedside. She was up in chair resting when I evaluated her. She says her cough is still lingering but definitely improved. Continuing ongoing Covid treatment. 11/09: NA 135, K3.4, CR 1.1, glucose 191. Episode of vomiting yesterday. Not eating much. Still significant cough with some right-sided rib pain and bilateral groin pain after lifting. 11/10: Afebrile overnight. NA 132. She was feeling better this morning but then sat up and has more right sided rib pain. Able to eat without vomiting today. On 3 L O2 saturation 91% 11/11: Afebrile overnight. NA 131. Still not eating much at all. Chest radiograph with diffuse interstitial infiltrates and cardiomegaly. No further vomiting. Still requiring 3 L nasal cannula oxygen with O2 saturations 91 to 92%. She thinks she might be feeling better overall. Pain is better 11/12: Given Lasix with improvement in her O2 saturations her pain is better controlled. NA 132. She felt so much better she got up to the bathroom on her own but her O2 saturations dropped to 77%. Placed back on 8 L currently, will reevaluate as she likely will only require 3 to 4 L as she did prior to her episode getting up to the restroom. Afebrile. NA 132. She says she feels better. Her O2 needs have increased requiring 8 L nasal cannula. Glucose still in 300s. 11/16/2020 No acute events overnight. Patient seen and examined bedside patient saturating 99% on 7 L nasal cannula. Patient's chart, labs, images were reviewed and discussed with RN Vitals/I&O Vitals/I&O: Vital Signs Date Time Temp Pulse Resp B/P (MAP) Pulse Ox O2 Delivery O2 Flow Rate FiO2 11/16/20 11:00 98.5 79 20 112/51 (71) 92 Nasal Cannula 5.0 98.5 I & O 11/15/20 11/15/20 11/16/20 15:00 23:00 07:00 Intake Total 240 ml Balance 240 ml Physical Exam General: Alert, Oriented X3, Cooperative Heart: Regular rate, Normal S1, Normal S2 Lungs: Crackles Abdomen: Normal bowel sounds, Soft, No tenderness Extremities: No edema, Normal pulses Skin: No significant lesion Labs Labs: Laboratory Tests Test 11/15/20 16:46 11/15/20 20:19 11/16/20 06:50 11/16/20 07:54 Glucose (Fingerstick) 182 mg/dL (70-99) 243 mg/dL (70-99) 117 mg/dL (70-99) White Blood Count 12.8 x10^3/uL (4.0-11.0) Red Blood Count 4.77 x10^6/uL (3.50-5.40) Hemoglobin 11.9 g/dL (12.0-15.5) Hematocrit 36.6 % (36.0-47.0) Mean Corpuscular Volume 77 fL (79-100) Mean Corpuscular Hemoglobin 25 pg (25-35) Mean Corpuscular Hemoglobin Concent 32 g/dL (31-37) Red Cell Distribution Width 15.5 % (11.5-14.5) Platelet Count 513 x10^3/uL (140-400) Neutrophils (%) (Auto) 73 % (31-73) Lymphocytes (%) (Auto) 19 % (24-48) Monocytes (%) (Auto) 6 % (0-9) Eosinophils (%) (Auto) 1 % (0-3) Basophils (%) (Auto) 1 % (0-3) Neutrophils # (Auto) 9.3 x10^3/uL (1.8-7.7) Lymphocytes # (Auto) 2.4 x10^3/uL (1.0-4.8) Monocytes # (Auto) 0.8 x10^3/uL (0.0-1.1) Eosinophils # (Auto) 0.1 x10^3/uL (0.0-0.7) Basophils # (Auto) 0.1 x10^3/uL (0.0-0.2) Sodium Level 135 mmol/L (136-145) Potassium Level 4.2 mmol/L (3.5-5.1) Chloride Level 101 mmol/L (98-107) Carbon Dioxide Level 33 mmol/L (21-32) Anion Gap 1 (6-14) Blood Urea Nitrogen 12 mg/dL (7-20) Creatinine 0.8 mg/dL (0.6-1.0) Estimated GFR (Cockcroft-Gault) 75.3 BUN/Creatinine Ratio 15 (6-20) Glucose Level 112 mg/dL (70-99) Calcium Level 7.7 mg/dL (8.5-10.1) Total Bilirubin 0.3 mg/dL (0.2-1.0) Aspartate Amino Transf (AST/SGOT) 14 U/L (15-37) Alanine Aminotransferase (ALT/SGPT) 57 U/L (14-59) Alkaline Phosphatase 162 U/L (46-116) Total Protein 5.7 g/dL (6.4-8.2) Albumin 2.1 g/dL (3.4-5.0) Albumin/Globulin Ratio 0.6 (1.0-1.7) Test 11/16/20 11:50 Glucose (Fingerstick) 110 mg/dL (70-99) Comment Review of Relevant I have reviewed the following items shawanda (where applicable) has been applied. Justifications for Admission Other Justification COVID-19 infection IRVING CAMACHO MD Nov 16, 2020 13:19
[2020-11-16 15:00] VITALS: BP 118/57
[2020-11-16 19:00] VITALS: BP 114/67
[2020-11-16] MEDS: ATORVASTATIN CALCIUM 20 MG TABLET PO SCH (20:24)
[2020-11-16] MEDS: MONTELUKAST SODIUM 10 MG TABLET. PO SCH (20:24)
[2020-11-16] MEDS: oxyCODONE IR 5 MG TABLET PO PRN (20:24)
[2020-11-16] MEDS: ZOLPIDEM 5 MG TABLET. PO PRN (20:37)
[2020-11-16] MEDS: INSULIN GLARGINE SYRINGE. SQ SCH (20:39)
[2020-11-16] MEDS: PATCH REMOVAL. MC SCH (21:00)
[2020-11-16 23:00] VITALS: BP 158/71
[2020-11-17 03:00] VITALS: BP 130/72
[2020-11-17 07:52] VITALS: BP 128/68
[2020-11-17] MEDS: INSULIN LISPRO 300 UNITS/3 ML VIAL. SQ SCH ×6 (08:00→17:00)
[2020-11-17] MEDS: IPRATROPIUM/ALBUTEROL 20/100mcg/INH INHALER. INH SCH ×3 (09:13→14:59)
[2020-11-17] MEDS: ASCORBIC ACID 1,000 MG TABLET PO SCH ×2 (09:14→14:59)
[2020-11-17] MEDS: PANTOPRAZOLE 40 MG TABLET.DR. PO SCH (09:14)
[2020-11-17] MEDS: ZINC SULFATE 220 MG CAPSULE. PO SCH (09:14)
[2020-11-17] MEDS: MAGNESIUM OXIDE 400 MG TABLET PO SCH (09:14)
[2020-11-17] MEDS: THIAMINE 100 MG TABLET. PO SCH (09:14)
[2020-11-17] MEDS: AMITRIPTYLINE HCL 25 MG TABLET. PO SCH (09:14)
[2020-11-17] MEDS: DEXAMETHASONE 4 MG TABLET PO SCH (09:14)
[2020-11-17] MEDS: ENOXAPARIN 40 MG/0.4 ML SYRINGE. SQ SCH (09:14)
[2020-11-17] MEDS: POTASSIUM CHLORIDE 20 MEQ TABLET.ER. PO SCH (09:14)
[2020-11-17] MEDS: DICYCLOMINE HCL 10 MG CAPSULE PO SCH (09:15)
[2020-11-17] MEDS: METOCLOPRAMIDE 10 MG TABLET. PO SCH ×2 (09:15→16:30)
[2020-11-17] MEDS: BENZONATATE 100 MG CAPSULE. PO SCH ×2 (09:15→14:59)
[2020-11-17] MEDS: METOPROLOL SUCC 24HR ER 50 MG TAB.ER.24H. PO SCH (09:15)
[2020-11-17] MEDS: FOLIC ACID 1 MG TABLET. PO SCH (09:16)
[2020-11-17] MEDS: LIDOCAINE (700MG/PATCH) PATCH. TD SCH (09:16)
[2020-11-17] MEDS: CITALOPRAM 20 MG TABLET. PO SCH (09:16)
[2020-11-17 11:35] VITALS: BP 98/54
[2020-11-17] MEDS: oxyCODONE IR 5 MG TABLET PO PRN (11:42)
[2020-11-17] MEDS ORDERED: PRED20TA PO (14:05)
--- NOTE | 2020-11-17 14:08 | DISCH ---
DISCHARGE INSTRUCTIONS Condition on Discharge Condition on Discharge: Stable Activity After Discharge Activity Instructions for Disc: Activity as tolerated Lifting Instructions after Dis: Do not lift >10 pounds Exercise Instruction after Dis: Walk 15 min, 3 x per day Driving Instructions after Dis: Do not drive today Weight Bearing Status after Di: Full weight bearing Diet after Discharge Diet after Discharge: Cardiac, Diabetic No Calorie Level Follow-Up Follow up with: PCP within 2 weeks of discharge Follow Up With: Pulmonology as needed IRVING CAMACHO MD Nov 17, 2020 14:08
[2020-11-17 15:16] VITALS: BP 116/71
--- NOTE | 2020-11-17 15:27 | NUR ---
SW following. Discussed with RN, pt completed a 6 minute walk, needs 3L at rest, 4L with exertion. LEO spoke with pt, pt is agreeable to oxygen and whichever company SW can find who will assist with having oxygen for journey back to [place], as well as getting oxygen set up there if pt still needs it. LEO spoke with Maximino at [employer], they have affiliate companies in [place], [place] who they can arrange with. Pt reported she will be in [place] for another 2-3 week at least, and that her is in another hospital with COVID. Pt requested SW call her daughter in law, Jenni ([phone]) to get address. LEO sent referral to [employer] with pt's current [place] address, awaiting approval to give tank. Jenni advised pt will have a ride home when ready. RN notified. LEO will continue to follow.
--- NOTE | 2020-11-17 16:45 | NUR ---
Pt stated to nursing staff "nobody has noticed that my IV has been out for days." During daily assessment this morning RN noted a PIV in place on the left hand. Pt IV no where to be found at this time. Tentative discharge home today. Will continue to monitor.
--- NOTE | 2020-11-17 18:20 | NUR ---
Discharge Note: MEGHANA HODGES [address] [place] [address] Discharge instructions and discharge home medications reviewed with Patient and a copy given. All questions have been answered and understanding verbalized. The following instructions and handouts were given: f/u with PCP within two weeks. Pt instructed to call [employer] when she gets to her home in order to have the company set up the oxygen. Pt stated she tried to call and the "office was closed." This RN explained to select the answering service option when calling in order to get a certified histologic technician to her home. Pt verbalized understanding. Patient discharged to Home or Self Care with Family Member via Wheelchair. All patient belongings in bag at time of discharge.
--- NOTE | 2020-11-18 20:59 | PDOC3 ---
[facility]-Discharge Summary Date of Admission: Date of Admission: Nov 06, 2020 Date of Discharge: Date of Discharge: Nov 17, 2020 Discharge Diagnosis: Discharge Diagnosis: Shortness of breath COVID-19 infection Acute hypoxic respiratory failure - due to covid 19, s/p remdesivir, still on steroids. Will check CRP. LFTs are WNL, may benefit from actemra or baricitinib if CRP elevated and would need pulm or ID consultation to order. Intractable nausea vomiting diarrhea, possibly related to viral infection Fibromyalgia History of seizures Rheumatoid arthritis Hypokalemia Type II diabetes mellitus - a1C 6.7, newly diagnosed Hyponatremia - nutritional Severe protein calorie malnutrition - was on PPN Hospital Course: Hospital Course: 50 yo F With PMHx of fibromyalgia, seizures, asthma, who went to [place] [facility] with 5 days of chills, myalgia, dizziness and had worsening symptoms. She also had nausea and vomiting and abdominal pain and some incontinence of stool and urine in the last 3 days. Patient states that she has had 3 episodes of diarrhea today and multiple episodes of nausea vomiting today. She was tested for Covid at [place] and was found to be positive. She did receive 1 dose of Remdesivir and then she was transferred over to [facility] because there is no beds at [place]. There are no alleviating or aggravating factors. She did recently finished antibiotics 2 weeks ago for an ear infection, she did take Augmentin. Denies fevers, chest pain, shortness of breath, bloody stools or hematuria. Patient did not get vaccinated for Covid because her PCP told her that she was having multiple infections and told her to wait until these improved. 11/07: Patient evaluated at bedside. She was resting in bed on room air with a lot of coughing. She was very pleasant. Restart remdesivir today 11/08: Patient evaluated at bedside. She was up in chair resting when I evaluated her. She says her cough is still lingering but definitely improved. Continuing ongoing Covid treatment. 11/09: NA 135, K3.4, CR 1.1, glucose 191. Episode of vomiting yesterday. Not eating much. Still significant cough with some right-sided rib pain and bila teral groin pain after lifting. 11/10: Afebrile overnight. NA 132. She was feeling better this morning but then sat up and has more right sided rib pain. Able to eat without vomiting today. On 3 L O2 saturation 91% 11/11: Afebrile overnight. NA 131. Still not eating much at all. Chest radiograph with diffuse interstitial infiltrates and cardiomegaly. No further vomiting. Still requiring 3 L nasal cannula oxygen with O2 saturations 91 to 92%. She thinks she might be feeling better overall. Pain is better 11/12: Given Lasix with improvement in her O2 saturations her pain is better con trolled. NA 132. She felt so much better she got up to the bathroom on her own but her O2 saturations dropped to 77%. Placed back on 8 L currently, will reevaluate as she likely will only require 3 to 4 L as she did prior to her episode getting up to the restroom. Afebrile. NA 132. She says she feels better. Her O2 needs have increased requiring 8 L nasal cannula. Glucose still in 300s. 11/16/2020 No acute events overnight. Patient seen and examined bedside patient saturating 99% on 7 L nasal cannula. Patient's chart, labs, images were reviewed and discussed with RN By day of discharge, pt was clinically stable and ready for discharge. She will be discharged with home O2. Rest of hospital course was uneventful Disposition: Disposition/Orders: D/C to Home Activity: Activity: Resume previous activity Diet: Diet: Cardiac Medications: Home Meds Active Scripts Prednisone (PREDNISONE) 20 Mg Tablet, 1 TAB PO DAILY for covid pneumonia for 5 Days, #5 TAB Prov:IRVING CAMACHO MD 11/17/20 Reported Medications Albuterol Sulfate (VENTOLIN HFA INHALER) 18 Gm Hfa.aer.ad, 2 PUFF INH PRN Q2HR PRN for SHORTNESS OF BREATH, EACH 0 Refills 11/06/20 Albuterol Sulfate (Proair Hfa) 8.5 Gm Hfa.aer.ad, 1 PUFF INH DAILY PRN for SHORTNESS OF BREATH, EACH 11/06/20 Budesonide/Formoterol Fumarate (SYMBICORT 160-4.5 MCG INHALER) 10.2 Gm Hfa.aer.ad, 1 PUFF IH DAILY for asthma, EACH 11/06/20 Metoclopramide Hcl (REGLAN) 10 Mg Tablet, 10 MG PO BIDAC for Gasrtroparesis, #60 TAB 0 Refills 11/06/20 Atorvastatin Calcium (ATORVASTATIN CALCIUM) 20 Mg Tablet, 20 MG PO HS for FOR CHOLESTEROL, #30 TAB 0 Refills 11/06/20 Chlorthalidone (Chlorthalidone) 25 Mg Tablet, 25 MG PO DAILY for unknown, TAB 11/06/20 Alprazolam (ALPRAZOLAM) 0.25 Mg Tablet, 0.25 MG PO PRN Q6HRS PRN for ANXIETY / AGITATION, TAB 0 Refills 11/06/20 Dicyclomine Hcl (DICYCLOMINE HCL) 10 Mg Capsule, 1 CAP PO DAILY for stomach pain, #90 CAP 11 Refills 11/06/20 Potassium Chloride (POTASSIUM CHLORIDE ) 20 Meq Tablet.er, 20 MEQ PO DAILY for SUPPLEMENT, TAB.SR 11/06/20 Magnesium Oxide (MAGNESIUM) 400 Mg Capsule, 1 CAP PO DAILY for supplement for 30 Days, #30 CAP 0 Refills 11/06/20 Cyclobenzaprine Hcl (CYCLOBENZAPRINE HCL) 10 Mg Tablet, 1 TAB PO TID for muscle spasms, #90 TAB 11/06/20 Rizatriptan Benzoate (MAXALT) 10 Mg Tablet, 5 MG PO PRN DAILY PRN for MIGRAINE HEADACHE, TAB 11/06/20 Montelukast Sodium (SINGULAIR TABLET ) 10 Mg Tablet, 10 MG PO HS for FOR ASTHMA, TAB 0 Refills 11/06/20 Amitriptyline Hcl (AMITRIPTYLINE HCL) 25 Mg Tablet, 25 MG PO DAILY for depression, TAB 11/06/20 Methotrexate Sodium (METHOTREXATE) 2.5 Mg Tablet, 6 TAB PO WEEKLY for RA, #24 TAB 1 Refill 11/06/20 Folic Acid (Folic Acid) 0.8 Mg Capsule, 1 CAP PO DAILY for supplement for 30 Days, #30 CAP 0 Refills 11/06/20 Doxepin Hcl (DOXEPIN HCL) 25 Mg Capsule, 25 MG PO PRN Q4HRS PRN for nerve pain, CAP 11/06/20 Citalopram Hydrobromide (CELEXA) 20 Mg Tablet, 1 TAB PO DAILY for depression, #90 TAB 3 Refills 11/06/20 Metoprolol Succinate (METOPROLOL SUCCINATE ( XL )) 25 Mg Tab.er.24h, 50 MG PO DAILY for FOR HYPERTENSION, #30 TAB 0 Refills 11/06/20 Discontinued Reported Medications Prednisone (PREDNISONE) 5 Mg Tablet, 5 MG PO DAILY for RA, TAB 11/06/20 Scheduled Amitriptyline Hcl (Amitriptyline Hcl), 25 MG PO DAILY, (Reported) Atorvastatin Calcium (Atorvastatin Calcium), 20 MG PO HS, (Reported) Budesonide/Formoterol Fumarate (Symbicort 160-4.5 Mcg Inhaler), 1 PUFF IH DAILY, (Reported) Chlorthalidone (Chlorthalidone), 25 MG PO DAILY, (Reported) Citalopram Hydrobromide (Celexa), 1 TAB PO DAILY, (Reported) Cyclobenzaprine Hcl (Cyclobenzaprine Hcl), 1 TAB PO TID, (Reported) Dicyclomine Hcl (Dicyclomine Hcl), 1 CAP PO DAILY, (Reported) Folic Acid (Folic Acid), 1 CAP PO DAILY, (Reported) Magnesium Oxide (Magnesium), 1 CAP PO DAILY, (Reported) Methotrexate Sodium (Methotrexate), 6 TAB PO WEEKLY, (Reported) Metoclopramide Hcl (Reglan), 10 MG PO BIDAC, (Reported) Metoprolol Succinate (Metoprolol Succinate ( Xl )), 50 MG PO DAILY, (Reported) Montelukast Sodium (Singulair Tablet ), 10 MG PO HS, (Reported) Potassium Chloride (Potassium Chloride ), 20 MEQ PO DAILY, (Reported) Prednisone (Prednisone), 1 TAB PO DAILY Scheduled PRN Albuterol Sulfate (Proair Hfa), 1 PUFF INH DAILY PRN for SHORTNESS OF BREATH, (Reported) Albuterol Sulfate (Ventolin Hfa Inhaler), 2 PUFF INH PRN Q2HR PRN for SHORTNESS OF BREATH, (Reported) Alprazolam (Alprazolam), 0.25 MG PO PRN Q6HRS PRN for ANXIETY / AGITATION, (Reported) Doxepin Hcl (Doxepin Hcl), 25 MG PO PRN Q4HRS PRN for nerve pain, (Reported) Rizatriptan Benzoate (Maxalt), 5 MG PO PRN DAILY PRN for MIGRAINE HEADACHE, (Reported) Discontinued Medications Prednisone (Prednisone), 5 MG PO DAILY, (Reported) Total Time: Total Time: Total time spent was 33 minutes in preparing scripts, discharge planning with SW and RN, and preparing this discharge summary. Patient seen and examined on day of discharge. Justicifation of Admission Dx: Justifications for Admission: Justification of Admission Dx: Yes Respiratory Failure: Severe Resp Distress IRVING CAMACHO MD Nov 18, 2020 20:59
== END 2020-11-17 18:20 | disposition home or self-care (01) | DRG 177 ==
LOC: 5 SOUTH 14:39 → 5 NORTH 11-12 15:09
PROVIDERS: ADMIT Internal Medicine; ATTEND Internal Medicine
PROC: XW033E5 Introduction of Remdesivir Anti-infective into Peripheral Vein, Percutaneous Approach, New Technology Group 5 (ICD-10-PCS; principal; 2020-11-07)
DX: U07.1 COVID-19 (principal); J96.01 Acute respiratory failure with hypoxia; J12.82 Pneumonia due to coronavirus disease 2019; E43 Unspecified severe protein-calorie malnutrition; E87.1 Hypo-osmolality and hyponatremia; Z68.41 Body mass index [BMI] 40.0-44.9, adult; E11.9 Type 2 diabetes mellitus without complications; E87.6 Hypokalemia; I51.7 Cardiomegaly; J45.909 Unspecified asthma, uncomplicated; M06.9 Rheumatoid arthritis, unspecified; M79.7 Fibromyalgia; R32 Unspecified urinary incontinence; Z88.8 Allergy status to other drugs, medicaments and biological substances; Z79.899 Other long term (current) drug therapy
CPT/HCPCS: 36415; 71045; 80048; 80053; 80076; 82962; 83036; 83540; 83550; 83735; 83880; 84100; 85007; 85025; 85379; 86140; 94618; J1650; J1815; J1940; J2270; J2405; J2920; J3475; J3490; J7030; J7050; 97535-GO; G0378